=== PATIENT | female | born 1980 | race American Indian/Alaskan Native ===

== ENCOUNTER 2020-08-11 19:20 | Emergency (ER) | payer MEDICAID, OTHER ==
[2020-08-11 19:40] VITALS: BP 182/114
[2020-08-11 20:17] LABS: Basophils % (Auto) 0.7 % (0.0-1.8); Eosinophils # (Auto) 0.2 K/mm3 (0.0-0.4); Eosinophils % (Auto) 3.6 % (0.0-4.3); Hemoglobin 12.4 gm/dl (10.1-14.3); Lymphocytes # (Auto) 1.6 K/mm3 (1.2-5.4); Lymphocytes % (Auto) 24.7 % (13.4-35.0); Mean Corpuscular HGB Conc 34 % (30-34); Mean Corpuscular Volume 92 fl (79-97); Monocytes # (Auto) 0.6 K/mm3 (0.0-0.8); Monocytes % (Auto) 9.1 % (0.0-7.3); Platelet Count 298 K/mm3 (140-440); Red Blood Count 4.02 M/mm3 (3.65-5.03); Red Cell Distribution Width 14.5 % (13.2-15.2)
[2020-08-11 20:38] LABS: BUN/Creatinine Ratio 21; Blood Urea Nitrogen 21 mg/dL (7-17); Calcium 8.6 mg/dL (8.4-10.2); Hemolysis Index 12
--- NOTE | 2020-08-11 21:32 | Emergency Department Report ---
ED GI Bleed HPI - General Chief complaint: Rectal Pain Stated complaint: BACK/RT FOOT PAIN;ANAL BLEEDING Time Seen by Provider: 08/11/20 20:09 Source: patient Mode of arrival: Ambulatory Limitations: No Limitations - History of Present Illness Initial comments: 40-year-old obese -[place] female with no significant past medical history presents emerged department complaining of a 3-day history of painless rectal bleeding of unknown etiology. She reports no rectal trauma, no diarrhea, no constipation, no hematemesis no hematochezia, no fever, chills, sweats. No flank pain. States that she only notices any blood during bowel movements. She says she has no suspicion of due to her lifestyle but is sure that the bleeding is coming from the rectal area also reports having no menstrual. Radiation: none Quality: painless Improves with: none Worsens with: none Associated Symptoms: denies: epistaxis, headaches, loss of appetite, malaise, easy bruising, rash, shortness of breath, syncope, weakness - Related Data Allergies Allergy/AdvReac Type Severity Reaction Status Date / Time No Known Allergies Allergy Unverified 08/11/20 19:40 ED Review of Systems ROS: Stated complaint: BACK/RT FOOT PAIN;ANAL BLEEDING Other details as noted in HPI Comment: All other systems reviewed and negative ED Past Medical Hx - Past Medical History Previous Medical History?: Yes Hx Hypertension: Yes - Surgical History Past Surgical History?: Yes Hx Cholecystectomy: Yes Additional Surgical History: Hysterectomy - Social History Smoking Status: Current Every Day Smoker Substance Use Type: Alcohol, Marijuana ED Physical Exam - General Limitations: No Limitations General appearance: alert, in no apparent distress - Head Head exam: Present: atraumatic, normocephalic - Eye Eye exam: Present: normal appearance, PERRL, EOMI - ENT ENT exam: Present: mucous membranes moist - Neck Neck exam: Present: normal inspection - Respiratory Respiratory exam: Present: normal lung sounds bilaterally. Absent: respiratory distress - Cardiovascular Cardiovascular Exam: Present: regular rate, normal rhythm. Absent: systolic murmur, diastolic murmur, rubs, gallop - GI/Abdominal GI/Abdominal exam: Present: soft, normal bowel sounds. Absent: tenderness, guarding - Rectal Rectal exam: Present: hemorrhoids (Internal hemorrhoid was noted at 5:00.), other (Drivers' Cash Clerk was present during examination) - Extremities Exam Extremities exam: Present: normal inspection - Back Exam Back exam: Present: normal inspection - Neurological Exam Neurological exam: Present: alert, oriented X3 - Psychiatric Psychiatric exam: Present: normal affect, normal mood - Skin Skin exam: Present: warm, dry, intact, normal color. Absent: rash ED Course Vital Signs 08/11/20 19:39 Temperature 98.3 F Pulse Rate 117 H Respiratory 19 Rate Blood Pressure 182/114 O2 Sat by Pulse 99 Oximetry ED Medical Decision Making - Lab Data Result diagrams: 08/11/20 19:47 08/11/20 19:58 Lab Results 08/11/20 08/11/20 08/11/20 Range/Units 19:47 19:58 Unknown WBC 6.4 (4.5-11.0) K/mm3 RBC 4.02 (3.65-5.03) M/mm3 Hgb 12.4 (10.1-14.3) gm/dl Hct 37.0 (30.3-42.9) % MCV 92 (79-97) fl MCH 31 (28-32) pg MCHC 34 (30-34) % RDW 14.5 (13.2-15.2) % Plt Count 298 (140-440) K/mm3 Lymph % (Auto) 24.7 (13.4-35.0) % [place] % (Auto) 9.1 H (0.0-7.3) % Eos % (Auto) 3.6 (0.0-4.3) % Baso % (Auto) 0.7 (0.0-1.8) % Lymph # (Auto) 1.6 (1.2-5.4) K/mm3 [place] # (Auto) 0.6 (0.0-0.8) K/mm3 Eos # (Auto) 0.2 (0.0-0.4) K/mm3 Baso # (Auto) 0.0 (0.0-0.1) K/mm3 Seg Neutrophils % 61.9 (40.0-70.0) % Seg Neutrophils # 4.0 (1.8-7.7) K/mm3 PT 13.1 (12.2-14.9) Sec. INR 1.00 (0.87-1.13) Sodium 139 (137-145) mmol/L Potassium 3.9 (3.6-5.0) mmol/L Chloride 103.7 (98-107) mmol/L Carbon Dioxide 23 (22-30) mmol/L Anion Gap 16 mmol/L BUN 21 H (7-17) mg/dL Creatinine 1.0 (0.6-1.2) mg/dL Estimated GFR > 60 ml/min BUN/Creatinine Ratio 21 % Glucose 101 H (65-100) mg/dL Calcium 8.6 (8.4-10.2) mg/dL - Medical Decision Making This patient presents with symptoms concerning for a lower GI bleed. Differential diagnosis includes diverticulitis versus hemorrhoids. Less likely etiologies include angiodysplasia, cancer, inflammatory bowel disease. The presentation is not consistent with mesenteric ischemia or ischemic colitis, brisk of life-threatening upper GI bleed as patient has no evidence of hemorrhagic shock. Labs were evaluated to check the extent of bleeding including an H&H which was over 12. No indication for abdominal imaging at this time. And and Hemoccult was negative. Plan did labs and hemodynamic monitoring with with serial reassist assessment. No abnormal findings were discovered. Blood did noted patient has slightly elevated blood pressure which did improve at the time of discharge and she remained asymptomatic in that regard throughout her emergency room visit. Critical care attestation.: If time is entered above; I have spent that time in minutes in the direct care of this critically ill patient, excluding procedure time. ED Disposition Clinical Impression: Hemorrhoids Disposition: DC-01 TO HOME OR SELFCARE Is pt being admited?: No Does the pt Need Aspirin: No Condition: Stable Instructions: Nonsurgical Procedures for Hemorrhoids, Hemorrhoids Referrals: [facility] [Other] - 3-5 Days [facility] [Provider Group] - 3-5 Days
== END 2020-08-11 22:30 | disposition home or self-care (01) ==
LOC: ED 19:20
DX: K64.9 Unspecified hemorrhoids (principal); I10 Essential (primary) hypertension; F17.200 Nicotine dependence, unspecified, uncomplicated; Z90.49 Acquired absence of other specified parts of digestive tract; Z90.710 Acquired absence of both cervix and uterus
CPT/HCPCS: 36415; 80048; 85025; 85610; 99283

== ENCOUNTER 2020-09-19 04:54 | Inpatient (IN) | payer MEDICAID, OTHER ==
[2020-09-19] MEDS ORDERED: ASPIRIN 325 MG TAB PO ONE (05:09)
--- NOTE | 2020-09-19 05:42 | XRay Report ---
CHEST 2 VIEWS INDICATION / CLINICAL INFORMATION: SOB. COMPARISON: None available. FINDINGS: SUPPORT DEVICES: None. HEART / MEDIASTINUM: Cardiomegaly with mild increased pulmonary vascularity LUNGS / PLEURA: No significant pulmonary or pleural abnormality. No pneumothorax. ADDITIONAL FINDINGS: No significant additional findings. IMPRESSION: Cardiomegaly with mild increased pulmonary vascularity Signer Name: Darshan Johnston MD Signed: 09/19/2020 5:38 AM Workstation Name: [id number]
[2020-09-19 05:54] LABS: Basophils % (Auto) 0.9 % (0.0-1.8); Eosinophils # (Auto) 0.4 K/mm3 (0.0-0.4); Eosinophils % (Auto) 7.3 % (0.0-4.3); Hematocrit 35.4 % (30.3-42.9); Hemoglobin 11.6 gm/dl (10.1-14.3); Lymphocytes # (Auto) 1.1 K/mm3 (1.2-5.4); Mean Corpuscular HGB Conc 33 % (30-34); Mean Corpuscular Volume 92 fl (79-97); Monocytes # (Auto) 0.5 K/mm3 (0.0-0.8); Monocytes % (Auto) 8.6 % (0.0-7.3); Platelet Count 287 K/mm3 (140-440); Red Blood Count 3.86 M/mm3 (3.65-5.03); Red Cell Distribution Width 14.7 % (13.2-15.2)
[2020-09-19 06:15] LABS: Alanine Aminotransferase 30 units/L (7-56); Albumin 4.2 g/dL (3.9-5); Blood Urea Nitrogen 17 mg/dL (7-17); Calcium 9.2 mg/dL (8.4-10.2); Hemolysis Index 2
[2020-09-19 06:24] LABS: BUN/Creatinine Ratio 24
[2020-09-19] MEDS ORDERED: AZITHROMYCIN 250 MG TAB PO ONE (06:57)
[2020-09-19] MEDS ORDERED: predniSONE 20 MG TAB PO ONE (06:57)
[2020-09-19] MEDS ORDERED: IPRATROPIUM/ALBUTEROL SULFATE 3 ML AMPUL.NEB IH ONE (06:57)
--- NOTE | 2020-09-19 06:59 | Emergency Department Report ---
ED Shortness of Breath HPI - General Chief Complaint: Dyspnea/Respdistress Stated Complaint: SOB Time Seen by Provider: 09/19/20 06:49 Source: patient Mode of arrival: Ambulatory Limitations: No Limitations - History of Present Illness Initial Comments: Chief complaint: "Breathing" HPI: This is a 40-year-old female with a history of COPD, hypertension, tobacco dependence, BMI 49 who presents with shortness of breath, wheezing and productive cough for the last 2 weeks. Albuterol MDI no relief. She tried to stop smoking for a while, breathing did not improve. She denies fever, chest pain, abdominal pain, headache, body aches. She is followed at [facility]. MD Complaint: shortness of breath, cough -: Gradual, week(s) (2 weeks) Severity: moderate Consistency: constant Improves With: nothing Worsens With: nothing Known History Of: COPD Associated Symptoms: cough, sputum production - Related Data Allergies Allergy/AdvReac Type Severity Reaction Status Date / Time No Known Allergies Allergy Unverified 08/11/20 19:40 ED Review of Systems ROS: Stated complaint: SOB Other details as noted in HPI Comment: All other systems reviewed and negative Constitutional: denies: chills, fever, malaise Respiratory: cough, shortness of breath, wheezing Cardiovascular: denies: chest pain Gastrointestinal: denies: abdominal pain, nausea, vomiting ED Past Medical Hx - Past Medical History Previous Medical History?: Yes Hx Hypertension: Yes Hx COPD: Yes Additional medical history: bronchitis - Surgical History Past Surgical History?: Yes Hx Cholecystectomy: Yes Additional Surgical History: Hysterectomy - Social History Smoking Status: Current Every Day Smoker Substance Use Type: Marijuana ED Physical Exam - General Limitations: No Limitations General appearance: alert, in no apparent distress, other (No respiratory distress speaking for sentences) - Head Head exam: Present: atraumatic, normocephalic - Eye Eye exam: Present: normal appearance - ENT ENT exam: Present: mucous membranes moist - Neck Neck exam: Present: normal inspection, full ROM - Respiratory Respiratory exam: Present: respiratory distress, wheezes, prolonged expiratory. Absent: rales, rhonchi, accessory muscle use - Cardiovascular Cardiovascular Exam: Present: regular rate, normal rhythm, normal heart sounds. Absent: systolic murmur, diastolic murmur, rubs, gallop - GI/Abdominal GI/Abdominal exam: Present: soft, normal bowel sounds. Absent: distended, tenderness, guarding, rebound - Extremities Exam Extremities exam: Present: normal inspection - Back Exam Back exam: Present: normal inspection - Neurological Exam Neurological exam: Present: alert, oriented X3 - Psychiatric Psychiatric exam: Present: normal affect, normal mood - Skin Skin exam: Present: warm, dry, intact, normal color. Absent: rash ED Course Vital Signs 09/19/20 09/19/20 09/19/20 05:03 08:28 08:45 Temperature 98.5 F Pulse Rate 106 H 106 H Pulse Rate [ 106 H Bilateral] Respiratory 20 20 Rate Respiratory 18 Rate [Bilateral ] Blood Pressure 178/113 161/107 [Right] O2 Sat by Pulse 98 93 Oximetry - Reevaluation(s) Reevaluation #1: 09/19/20 09:05 Patient receiving nebulizer therapy. Frequent coughing observed Reevaluation #2: 09/19/20 10:35 Patient had only mild improvement with nebulizer therapy. She has clear breath sounds on exam. CT chest angiogram ordered ED Medical Decision Making - Lab Data Result diagrams: 09/19/20 05:27 09/19/20 05:27 - EKG Data -: EKG Interpreted by Pr EKG shows normal: sinus rhythm, axis Rate: tachycardia - EKG Data Interpretation: nonspecific ST-T wave emily 09/19/20 07:02 EKG obtained 0518 Sinus tachycardia rate 110 bpm normal axis prolonged QTC no ST elevation nonspecific T wave pattern - Radiology Data Radiology results: report reviewed Patient Name: FELIX JORDAN Gender: Female Date of : 1980 Referring Provider: TAIWO, ED Organization: [facility] Accession Number: [id number] Requested Date: September 19, 2020 05:09 Report Status: Final Requested Procedure: 1 Procedure Description: XR chest routine 2V Modality: XR Findings Reporting MD: Darshan Johnston Dictation Time: September 19, 2020 04:38 Flat Screen Worker: Not available Glass Beveller Date: CHEST 2 VIEWS INDICATION / CLINICAL INFORMATION: SOB. COMPARISON: None available. FINDINGS: SUPPORT DEVICES: None. HEART / MEDIASTINUM: Cardiomegaly with mild increased pulmonary vascularity LUNGS / PLEURA: No significant pulmonary or pleural abnormality. No pneumothorax. ADDITIONAL FINDINGS: No significant additional findings. IMPRESSION: Cardiomegaly with mild increased pulmonary vascularity Signer Name: Darshan Johnston MD Signed: 09/19/2020 4:38 AM Workstation Name: [id number] Patient Name: FELIX JORDAN Gender: Female Date of : 1980 Referring Provider: REINALDO FOREMAN Organization: [facility] Accession Number: [id number] Requested Date: September 19, 2020 10:35 Report Status: Final Requested Procedure: 1 Procedure Description: CT angio chest Modality: CT Findings Reporting MD: Noel Nguyen Dictation Time: September 19, 2020 10:28 Flat Screen Worker: Not available Glass Beveller Date: CTA CHEST WITH IV CONTRAST INDICATION: Dyspnea, chest pain obesity elevated D-dimerm 100 ml omni 350 . TECHNIQUE: Axial CT images were obtained through the chest after injection of 100 mL IV contrast. 3 plane MIP reconstructions were produced. All CT scans at this location are performed using CT dose reduction for ALARA by means of automated exposure control. COMPARISON: None available. FINDINGS: PULMONARY ARTERIES: No pulmonary emboli. AORTA AND ARTERIES: No acute abnormality. MEDIASTINUM: No mass, lymphadenopathy or other significant abnormality. The h eart is normal in size without a pericardial effusion. The trachea and main bronchi are patent and normal in caliber. LUNGS: Diffuse interstitial prominence with bibasilar airspace patchy consolidation with small bilateral pleural effusions. ADDITIONAL FINDINGS: None. UPPER ABDOMEN: No acute findings. BONES: No significant osseous abnormality. IMPRESSION: 1. No CT evidence for pulmonary embolism. 2. Mild interstitial edema with small bilateral pleural effusions. Signer Name: Noel Nguyen MD Signed: 09/19/2020 10:28 AM Workstation Name: [id number] - Medical Decision Making Acute respiratory failure hypoxia: After treatment in the emergency department oxygen saturation 91% on room air. After exertion oxygen saturation 83%. CT angiogram revealed bilateral fluffy opacities. Due to productive cough concern for infectious atypical organism such as COVID-19 pneumonia. Differential diagnosis includes heart failure. Patient admitted to the hospital service in fair condition requiring oxygen supplementation Critical care attestation.: If time is entered above; I have spent that time in minutes in the direct care of this critically ill patient, excluding procedure time. ED Disposition Clinical Impression: Acute respiratory failure with hypoxia, Suspected COVID-19 virus infection, Acute heart failure Disposition: DC09 OP ADMIT IP TO THIS HOSP Is pt being admited?: Yes Does the pt Need Aspirin: No Condition: Stable
--- NOTE | 2020-09-19 11:32 | Cat Scan Report ---
CTA CHEST WITH IV CONTRAST INDICATION: Dyspnea, chest pain obesity elevated D-dimerm 100 ml omni 350 . TECHNIQUE: Axial CT images were obtained through the chest after injection of 100 mL IV contrast. 3 plane MIP re constructions were produced. All CT scans at this location are performed using CT dose reduction for ALARA by means of automated exposure control. COMPARISON: None available. FINDINGS: PULMONARY ARTERIES: No pulmonary emboli. AORTA AND ARTERIES: No acute abnormality. MEDIASTINUM: No mass, lymphadenopathy or other significant abnormality. The heart is normal in size w ithout a pericardial effusion. The trachea and main bronchi are patent and normal in caliber. LUNGS: Diffuse interstitial prominence with bibasilar airspace patchy consolidation with small bilate ral pleural effusions. ADDITIONAL FINDINGS: None. UPPER ABDOMEN: No acute findings. BONES: No significant osseous abnormality. IMPRESSION: 1. No CT evidence for pulmonary embolism. 2. Mild interstitial edema with small bilateral pleural effusions. Signer Name: Noel Nguyen MD Signed: 09/19/2020 11:28 AM Workstation Name: [id number]
[2020-09-19] MEDS ORDERED: cefTRIAXone/NS 1 GM/50 ML 1 GM/50 ML BAG IV ONE (11:59)
--- NOTE | 2020-09-19 12:09 | History and Physical Report ---
History of Present Illness Chief complaint: I am short of breath History of present illness: 40 YO Female with Obesity Hypoventilation Syndrome, COPD, HTN, KELLEE concompliant with CPAP, Nicotine Dependence, ETOH Dependence presents to ED for evaluation. Pt reports" I am short of breath". Patient states that she has experienced shortness of breath over the past 1 year with worsening symptoms over the past 1 week. Patient knowledges decreased exercise tolerance, dyspnea on exertion, dyspnea at rest, as well as orthopnea, and paroxysmal nocturnal dyspnea. Patient transported to [facility] via private vehicle for further care and evaluation of the aforementioned symptoms. The patient was seen and evaluated in the emerg ency department. All lab and imaging studies reviewed. Patient underwent chest x-ray and found to have bilateral pleural effusion, as well as clinical symptoms consistent with new onset diastolic CHF decompensation. Patient initiated on CHF protocol and admitted to telemetry. Cardiology team consulted in ED. Patient denies fever, chills, chest pain, palpitation, productive cough, skin rash, recent ill contact, or known exposure to COVID-19. No prior admission for review. All medication listed at time of admission has been reconciled. Past History Past Medical History: COPD, hypertension, other (See HPI) Past Surgical History: cholecystectomy, hysterectomy Social history: , smoking, alcohol abuse Family history: diabetes, hypertension Medications and Allergies Allergies Allergy/AdvReac Type Severity Reaction Status Date / Time No Known Allergies Allergy Unverified 08/11/20 19:40 Active Meds: Active Medications Ceftriaxone Sodium (Rocephin/Ns 1 Gm/50 Ml) 1 gm in 50 mls @ 100 mls/hr IV ONCE ONE; Protocol Stop: 09/19/20 12:28 Review of Systems Constitutional: no weight loss, no weight gain, no fever, no chills Ears, nose, mouth and throat: no ear pain, no ear discharge, no tinnitis, no nose pain, no nasal congestion Breasts: no change in shape, no swelling, no mass Cardiovascular: orthopnea, shortness of breath, dyspnea on exertion, paroxysmal nocturnal dyspnea, decreased exercise tolerance, no chest pain, no rapid/irregular heart beat, no syncope Respiratory: no cough, no cough with sputum, no excessive sputum Gastrointestinal: no abdominal pain, no nausea, no vomiting, no constipation Genitourinary Female: no pelvic pain, no flank pain, no dysuria, no urinary frequency, no urgency Rectal: no pain, no incontinence, no bleeding Musculoskeletal: no neck stiffness, no neck pain, no shooting arm pain, no arm numbness/tingling Integumentary: no rash, no pruritis, no redness, no sores, no wounds Neurological: no head injury, no transient paralysis, no parathesias, no tingli ng, no seizures Psychiatric: no anxiety, no memory loss, no sleep disturbances, no change in appetite Endocrine: no cold intolerance, no polyphagia, no excessive thirst, no polyuria, no nocturia Hematologic/Lymphatic: no easy bruising, no easy bleeding, no lymphadenopathy Allergic/Immunologic: no urticaria, no allergic rhinitis, no persistent infections, no anaphylaxis Exam - Constitutional Vitals: Temp Pulse Resp BP Pulse Ox 98.5 F 106 H 18 161/107 93 09/19/20 05:03 09/19/20 08:45 09/19/20 08:45 09/19/20 08:28 09/19/20 08:28 General appearance: Present: mild distress, obese - EENT Eyes: Present: PERRL ENT: hearing intact, clear oral mucosa - Neck Neck: Present: supple, normal ROM - Respiratory Respiratory effort: normal Respiratory: bilateral: rales - Cardiovascular Heart Sounds: Present: S1 & S2. Absent: rub, click - Extremities Extremities: pulses symmetrical, No edema Peripheral Pulses: within normal limits - Abdominal General gastrointestinal: Present: soft, non-tender, non-distended, normal bowel sounds Female genitourinary: Present: normal - Integumentary Integumentary: Present: clear, warm, dry - Musculoskeletal Musculoskeletal: gait normal, strength equal bilaterally - Psychiatric Psychiatric: appropriate mood/affect, intact judgment & insight - Neurologic Neurologic: CNII-XII intact, moves all extremities HEART Score - HEART Score Troponin: Troponin T < 0.010 ng/mL (0.00-0.029) 09/19/20 05:27 Results - Labs CBC & Chem 7: 09/19/20 05:27 09/19/20 05:27 Labs: Abnormal lab results 09/19/20 09/19/20 09/19/20 Range/Units 05:27 05:27 07:40 [place] % (Auto) 8.6 H (0.0-7.3) % Eos % (Auto) 7.3 H (0.0-4.3) % Lymph # (Auto) 1.1 L (1.2-5.4) K/mm3 D-Dimer 323.16 H (0-234) ng/mlDDU Glucose 118 H (65-100) mg/dL Assessment and Plan - Patient Problems (1) Diastolic CHF Current Visit: Yes Status: Acute Qualifiers: Heart failure chronicity: acute Qualified Code(s): I50.31 - Acute diastolic (congestive) heart failure Plan to address problem: CHF protocol: Strict I's/O, monitor urine output every shift, daily weight, afterload reduction, blood pressure control, BNP, cardiology team consulted, echocardiogram ordered and is pending at time of admission. (2) Obesity hypoventilation syndrome Current Visit: Yes Status: Acute Plan to address problem: Balanced diet, increase physical activity discharge, outpatient pulmonary follow-up for sleep study. (3) Nicotine dependence Current Visit: Yes Status: Acute Qualifiers: Nicotine product type: cigarettes Substance use status: in withdrawal Qualified Code(s): F17.213 - Nicotine dependence, cigarettes, with withdrawal Plan to address problem: Smoking cessation counseling, supportive care, behavior change counseling, +15 minutes. (4) EtOH dependence Current Visit: Yes Status: Acute Plan to address problem: Thiamine, folic acid, multivitamin, CIWA protocol (5) DVT prophylaxis Current Visit: Yes Status: Acute Plan to address problem: SCDs bilateral lower extremities while in bed, patient is ambulatory
[2020-09-19] MEDS ORDERED: FUROSEMIDE 40 MG/4 ML INJ IV ONE (12:12)
[2020-09-19] MEDS ORDERED: ACETAMINOPHEN 325 MG TAB PO PRN (13:07)
[2020-09-19] MEDS ORDERED: ALBUTEROL 2.5 MG/3 ML NEBU IH PRN (13:07)
[2020-09-19] MEDS ORDERED: ONDANSETRON 4 MG/2 ML INJ IV PRN (13:07)
--- NOTE | 2020-09-19 15:57 | Consultation ---
History of Present Illness Consult date: 09/19/20 Requesting physician: OBDULIO JARQUIN Consult reason: congestive heart failure History of present illness: This patient is a 40-year-old female with a significant history of COPD, hypertension, obstructive sleep apnea noncompliant with CPAP, tobacco use, EtOH abuse, BMI 49. She is previously unknown to our practice and is not followed by cardiology. Patient presents to [facility] ER complaining of shortness of breath and productive cough with wheeze acutely worse x1 week, with progressive decrease in ADLs and shortness of breath over the last year. Patient has been told she has heart failure in the past which was reportedly evaluated through [facility] but is not currently seen by their practice. She has just been established with [facility] and is not currently on any home medications. Cardiology is consulted for congestive heart failure. BNP is noted to be elevated on admission. At time of interview, patient denies any weakness, dizziness, syncope, chest pain, abdominal pain, N/V/D, recent illness or known exposures. Her shortness of breath is greatly improved with supplemental oxygen by nasal cannula. Patient admits tobacco use half pack per day x20 years. Significant history of EtOH use 750 mL bottle every other night per patient. Patient is admitted is a Covid PUI, she has not received Covid vaccination and has not previously been diagnosed with episode of Covid. She tested negative for COVID-19 in June. Patient had sleep study 8 years ago and was diagnosed with obstructive sleep apnea recommended to be on CPAP therapy for which she has been noncompliant and has not followed up with pulmonology. D-dimer is noted to be elevated on admission. CTA chest is negative for pulmonary embolism. BLE duplex ultrasound is pending. Past History Past Medical History: other (See HPI) Medications and Allergies Allergies Allergy/AdvReac Type Severity Reaction Status Date / Time No Known Allergies Allergy Unverified 08/11/20 19:40 Active Meds: Active Medications Acetaminophen (Acetaminophen 325 Mg Tab) 650 mg PO Q4H PRN PRN Reason: Pain MILD(1-3)/Fever >100.5/MCLAUGHLIN Albuterol (Albuterol 2.5 Mg/3 Ml Nebu) 2.5 mg IH Q4HRT PRN PRN Reason: Shortness Of Breath Famotidine (Famotidine 10 Mg Tab) 10 mg PO BID YNES Furosemide (Furosemide 20 Mg/2 Ml Inj) 20 mg IV BID@0600,1800 [facility] Ondansetron HCl (Ondansetron 4 Mg/2 Ml Inj) 4 mg IV Q8H PRN PRN Reason: Nausea And Vomiting Sodium Chloride (Sodium Chloride 0.9% 10 Ml Flush Syringe) 10 ml IV BID [facility] Sodium Chloride (Sodium Chloride 0.9% 10 Ml Flush Syringe) 10 ml IV PRN PRN PRN Reason: LINE FLUSH Review of Systems Constitutional: no weight loss, no weight gain, no fever, no chills, no sweats, no night sweats Ears, nose, mouth and throat: no ear pain, no ear discharge, no nose pain, no nasal congestion, no nasal discharge Cardiovascular: orthopnea, edema, shortness of breath, dyspnea on exertion, leg edema, decreased exercise tolerance, no chest pain, no palpitations, no rapid/irregular heart beat, no syncope, no lightheadedness, no paroxysmal nocturnal dyspnea, no claudication, no phlebitis, no high blood pressure Respiratory: cough, shortness of breath, dyspnea on exertion, no hemoptysis Gastrointestinal: no abdominal pain, no nausea, no vomiting, no diarrhea Genitourinary Female: no flank pain Menstruation: post hysterectomy Musculoskeletal: no neck stiffness, no neck pain, no shooting arm pain, no arm numbness/tingling, no low back pain, no shooting leg pain Integumentary: no rash, no pruritis, no redness, no sores, no wounds Neurological: no head injury, no paralysis, no weakness, no parathesias, no numbness, no tingling, no seizures, no syncope Psychiatric: no anxiety Endocrine: no cold intolerance, no heat intolerance Hematologic/Lymphatic: no easy bruising, no easy bleeding Allergic/Immunologic: no urticaria Physical Examination Last Vital Signs Temp 98.5 F 09/19/20 05:03 Pulse 106 H 09/19/20 08:45 Resp 18 09/19/20 08:45 BP 161/107 09/19/20 08:28 Pulse Ox 93 09/19/20 08:28 General appearance: no acute distress HEENT: Positive: PERRL, Normocephaly, Mucus Membranes Moist Neck: Positive: neck supple, trachea midline Cardiac: Positive: Reg Rate and Rhythm, S1/S2 Lungs: Positive: Decreased Breath Sounds Neuro: Positive: Grossly Intact Abdomen: Positive: Unremarkable, Soft Skin: Negative: Rash, Wound Musculoskeletal: No Pain Extremities: Present: upper extr. pulses, lower extr. pulses, +2 Edema Results 09/19/20 05:27 09/19/20 05:27 Cardiac Enzymes 09/19/20 Range/Units 05:27 AST 26 (5-40) units/L CBC 09/19/20 Range/Units 05:27 WBC 5.6 (4.5-11.0) K/mm3 RBC 3.86 (3.65-5.03) M/mm3 Hgb 11.6 (10.1-14.3) gm/dl Hct 35.4 (30.3-42.9) % Plt Count 287 (140-440) K/mm3 Lymph # (Auto) 1.1 L (1.2-5.4) K/mm3 [place] # (Auto) 0.5 (0.0-0.8) K/mm3 Eos # (Auto) 0.4 (0.0-0.4) K/mm3 Baso # (Auto) 0.0 (0.0-0.1) K/mm3 Comprehensive Metabolic Panel 09/19/20 Range/Units 05:27 Sodium 140 (137-145) mmol/L Potassium 4.2 (3.6-5.0) mmol/L Chloride 105.4 (98-107) mmol/L Carbon Dioxide 25 (22-30) mmol/L BUN 17 (7-17) mg/dL Creatinine 0.7 (0.6-1.2) mg/dL Glucose 118 H (65-100) mg/dL Calcium 9.2 (8.4-10.2) mg/dL AST 26 (5-40) units/L ALT 30 (7-56) units/L Alkaline Phosphatase 105 (35-129) units/L Total Protein 6.6 (6.3-8.2) g/dL Albumin 4.2 (3.9-5) g/dL - Imaging and Cardiology Echo: pending EKG: report reviewed, image reviewed EKG interpretations - Telemetry EKG Rhythm: Sinus Tachycardia - EKG Sinus rhythms and dysrhythmias: sinus tachycardia Assessment and Plan Acute on chronic congestive heart failure * Currently chest pain-free. Twelve-lead reviewed shows sinus tach with no acut e ischemic changes. Troponin is negative x1. Will continue to trend CE's. * Echocardiogram is pending * Optimize volume control: Lasix 40 mg IV twice daily. BMP, mag in a.m. Strict I/O's. * Optimize antihypertensive regimen: Initiate Coreg 12.5 twice daily, lisinopril 5 mg daily. Elevated D-dimer * CTA chest is negative for PTE. BLE ultrasound pending Covid PUI * PCR results are pending EtOH dependence * Management per primary team Tobacco use * Cessation encouraged DVT prophylaxis * Heparin SQ Patient is currently stable cardiac status. Echo pending. Will follow This patient was seen in conjunction with Dr Valentina Callaway who agrees with this assessment plan of care - Patient Problems (1) Acute on chronic heart failure Current Visit: Yes Status: Acute (2) Cardiomyopathy Current Visit: Yes Status: Chronic (3) ETOH abuse Current Visit: Yes Status: Chronic (4) Elevated d-dimer Current Visit: Yes Status: Acute (5) Tobacco use Current Visit: Yes Status: Chronic (6) DVT prophylaxis Current Visit: Yes Status: Acute (7) Person under investigation for COVID-19 Current Visit: Yes Status: Acute (8) Obstructive sleep apnea Current Visit: Yes Status: Chronic (9) Hypertension Current Visit: Yes Status: Chronic
--- NOTE | 2020-09-19 17:26 | Vascular Lab Report ---
DUPLEX DOPPLER LOWER EXTREMITY VEINS, BILATERAL INDICATION / CLINICAL INFORMATION: elevated d-dimer. TECHNIQUE: Duplex doppler imaging was performed through the veins of both lower extremities using venous jourdan aris and other maneuvers. COMPARISON: None available. FINDINGS: RIGHT COMMON FEMORAL VEIN: Negative. RIGHT FEMORAL VEIN: Negative. RIGHT POPLITEAL VEIN: Negative. RIGHT CALF VEINS: Negative. LEFT COMMON FEMORAL VEIN: Negative. LEFT FEMORAL VEIN: Negative. LEFT POPLITEAL VEIN: Negative. LEFT CALF VEINS: Negative. ADDITIONAL FINDINGS: None. IMPRESSION: 1. No sonographic evidence for DVT in either lower extremity. Signer Name: Josh Glaser MD Signed: 09/19/2020 5:22 PM Workstation Name: [id number]
[2020-09-19] MEDS ORDERED: FUROSEMIDE 20 MG/2 ML INJ IV SCH (18:00)
[2020-09-19] MEDS: LISINOPRIL 5 MG TAB PO SCH (18:51)
[2020-09-19] MEDS ORDERED: hydrALAZINE 20 MG/1 ML INJ IV PRN (19:27)
[2020-09-19] MEDS ORDERED: HYDROmorphone 1 MG/1 ML INJ IV PRN (19:27)
[2020-09-19] MEDS: FUROSEMIDE 20 MG/2 ML INJ IV SCH (19:58)
--- NOTE | 2020-09-19 23:08 | Cat Scan Report ---
CT ABDOMEN AND PELVIS WITHOUT CONTRAST HISTORY: Syncope pallor. COMPARISON: None. TECHNIQUE: CT images of the abdomen and pelvis were obtained without administration of intravenous co ntrast. All CT scans at this location are performed using CT dose reduction for ALARA by means of au tomated exposure control. FINDINGS: Lungs/bones: Groundglass opacity/edema and bilateral lower lungs. Mild atelectasis in the right lowe r lung Abdomen/pelvis: Within limits of a noncontrast examination the liver, spleen, adrenal glands and dickey creas appear normal. Prior cholecystectomy. Hypodensities in bilateral kidneys suggest residual contr ast from prior CT angiogram. No hydronephrosis is seen. No bowel obstruction is identified. No free f luid in the abdomen or pelvis. No focal inflammatory change. Small amount of gas is seen in left bili ye system and the liver liver is enlarged. No acute bone findings are seen. Small amount of free flu id in the pelvis. IMPRESSION: 1. Hepatomegaly. Postoperative change with gas in the left biliary system and post cholecystomy hannah e. 2. No bowel obstruction is seen. 3. Free fluid in the pelvis 4. Small effusions Signer Name: Darshan Johsnton MD Signed: 09/19/2020 11:03 PM Workstation Name: [id number]
[2020-09-19] MEDS: carvediloL 12.5 MG TAB PO SCH (23:49)
[2020-09-19] MEDS: FAMOTIDINE 10 MG TAB PO SCH (23:49)
[2020-09-20] MEDS: FUROSEMIDE 20 MG/2 ML INJ IV SCH ×2 (05:43→17:46)
[2020-09-20 08:11] LABS: Hematocrit 37.9 % (30.3-42.9); Hemoglobin 12.5 gm/dl (10.1-14.3); Mean Corpuscular HGB Conc 33 % (30-34); Mean Corpuscular Volume 91 fl (79-97); Platelet Count 317 K/mm3 (140-440); Red Blood Count 4.18 M/mm3 (3.65-5.03); Red Cell Distribution Width 14.5 % (13.2-15.2)
[2020-09-20 08:30] LABS: Blood Urea Nitrogen 15 mg/dL (7-17); Calcium 9.2 mg/dL (8.4-10.2); Hemolysis Index 19
[2020-09-20 08:37] LABS: BUN/Creatinine Ratio 21
[2020-09-20] MEDS ORDERED: LISINOPRIL 5 MG TAB PO SCH (12:08)
[2020-09-20] MEDS ORDERED: carvediloL 12.5 MG TAB PO SCH (12:08)
--- NOTE | 2020-09-20 12:27 | Progress Note ---
Assessment and Plan Assessment and plan: 40 YO Female with Obesity Hypoventilation Syndrome, COPD, HTN, KELLEE concompliant with CPAP, Nicotine Dependence, ETOH Dependence presents to ED for evaluation. Pt reports" I am short of breath". Patient states that she has experienced shortness of breath over the past 1 year with worsening symptoms over the past 1 week. Patient knowledges decreased exercise tolerance, dyspnea on exertion, dyspnea at rest, as well as orthopnea, and paroxysmal nocturnal dyspnea. Patient transported to [facility] via private vehicle for further care and evaluation of the aforementioned symptoms. The patient was seen and evaluated in the emergency department. All lab and imaging studies reviewed. Patient underwent chest x-ray and found to have bilateral pleural effusion, as well as clinical symptoms consistent with new onset diastolic CHF decompensation. Patient initiated on CHF protocol and admitted to telemetry. Cardiology team consulted in ED. Patient denies fever, chills, chest pain, palpitation, productive cough, skin rash, recent ill contact, or known exposure to COVID-19. No prior admission for review. All medication listed at time of admission has been reconciled. CT chest: mild interstitial edema 09/20: Restart CPAP, counselling about tobacco use disorder 15 mins counselling, Continue current management, Pulmonary eval. Also discussed compliance and weight loss. She verbalized understanding. Anticipate discharge in 24-48 hrs. Gurpreet Carreon (1) Diastolic CHF Current Visit: Yes Status: Acute Qualifiers: Heart failure chronicity: acute Qualified Code(s): I50.31 - Acute diastolic (congestive) heart failure Plan to address problem: CHF protocol: Strict I's/O, monitor urine output every shift, daily weight, afterload reduction, blood pressure control, BNP, cardiology team consulted, echocardiogram ordered and is pending at time of admission. (2) Obesity hypoventilation syndrome Current Visit: Yes Status: Acute Plan to address problem: Balanced diet, increase physical activity discharge, outpatient pulmonary follow-up for sleep study. (3) Nicotine dependence Current Visit: Yes Status: Acute Qualifiers: Nicotine product type: cigarettes Substance use status: in withdrawal Qualified Code(s): F17.213 - Nicotine dependence, cigarettes, with withdrawal Plan to address problem: Smoking cessation counseling, supportive care, behavior change counseling, +15 minutes. (4) EtOH dependence Current Visit: Yes Status: Acute Plan to address problem: Thiamine, folic acid, multivitamin, CIWA protocol (5) Hypokalemia (6) DVT prophylaxis Current Visit: Yes Status: Acute Plan to address problem: SCDs bilateral lower extremities while in bed, patient is ambulatory History Interval history: Patient seen and examined, reports some improvement. Patient reports that she was smoking a week ago when she began having cough. She reports some improvement in the cough, but still with shortness of breath, she uses CPAP at home. Hospitalist Physical - Constitutional Vitals: Temp Pulse Resp BP Pulse Ox 98.6 F 97 H 20 158/96 93 09/20/20 05:03 09/20/20 05:03 09/20/20 05:03 09/20/20 05:03 09/20/20 08:15 General appearance: Present: mild distress, obese HEART Score - HEART Score Troponin: Troponin T < 0.010 ng/mL (0.00-0.029) 09/20/20 06:55 Results - Labs CBC & Chem 7: 09/20/20 06:55 09/20/20 06:55 Labs: Laboratory Last Values WBC 6.7 K/mm3 (4.5-11.0) 09/20/20 06:55 RBC 4.18 M/mm3 (3.65-5.03) 09/20/20 06:55 Hgb 12.5 gm/dl (10.1-14.3) 09/20/20 06:55 Hct 37.9 % (30.3-42.9) 09/20/20 06:55 MCV 91 fl (79-97) 09/20/20 06:55 MCH 30 pg (28-32) 09/20/20 06:55 MCHC 33 % (30-34) 09/20/20 06:55 RDW 14.5 % (13.2-15.2) 09/20/20 06:55 Plt Count 317 K/mm3 (140-440) 09/20/20 06:55 Lymph % (Auto) 20.0 % (13.4-35.0) 09/19/20 05:27 [place] % (Auto) 8.6 % (0.0-7.3) H 09/19/20 05:27 Eos % (Auto) 7.3 % (0.0-4.3) H 09/19/20 05:27 Baso % (Auto) 0.9 % (0.0-1.8) 09/19/20 05:27 Lymph # (Auto) 1.1 K/mm3 (1.2-5.4) L 09/19/20 05:27 [place] # (Auto) 0.5 K/mm3 (0.0-0.8) 09/19/20 05:27 Eos # (Auto) 0.4 K/mm3 (0.0-0.4) 09/19/20 05:27 Baso # (Auto) 0.0 K/mm3 (0.0-0.1) 09/19/20 05:27 Seg Neutrophils % 63.2 % (40.0-70.0) 09/19/20 05:27 Seg Neutrophils # 3.5 K/mm3 (1.8-7.7) 09/19/20 05:27 D-Dimer 323.16 ng/mlDDU (0-234) H 09/19/20 07:40 Sodium 139 mmol/L (137-145) 09/20/20 06:55 Potassium 3.5 mmol/L (3.6-5.0) L 09/20/20 06:55 Chloride 100.0 mmol/L (98-107) 09/20/20 06:55 Carbon Dioxide 27 mmol/L (22-30) 09/20/20 06:55 Anion Gap 16 mmol/L 09/20/20 06:55 BUN 15 mg/dL (7-17) 09/20/20 06:55 Creatinine 0.7 mg/dL (0.6-1.2) 09/20/20 06:55 Estimated GFR > 60 ml/min 09/20/20 06:55 BUN/Creatinine Ratio 21 % 09/20/20 06:55 Glucose 100 mg/dL (65-100) 09/20/20 06:55 Calcium 9.2 mg/dL (8.4-10.2) 09/20/20 06:55 Magnesium 1.90 mg/dL (1.7-2.3) 09/20/20 06:55 Total Bilirubin 0.30 mg/dL (0.1-1.2) 09/19/20 05:27 AST 26 units/L (5-40) 09/19/20 05:27 ALT 30 units/L (7-56) 09/19/20 05:27 Alkaline Phosphatase 105 units/L (35-129) 09/19/20 05:27 Troponin T < 0.010 ng/mL (0.00-0.029) 09/20/20 06:55 NT-Pro-B Natriuret Pep 4949 pg/mL (0-450) H 09/19/20 05:27 Total Protein 6.6 g/dL (6.3-8.2) 09/19/20 05:27 Albumin 4.2 g/dL (3.9-5) 09/19/20 05:27 Albumin/Globulin Ratio 1.8 % 09/19/20 05:27 Mera/IV: Voiding Method Toilet Active Medications - Current Medications Current Medications: Generic Name Dose Route Start Last Admin Trade Name Freq PRN Reason Stop Dose Admin Acetaminophen 650 mg 09/19/20 13:07 Acetaminophen 325 Mg Tab PO Q4H PRN Pain MILD(1-3)/Fever >100.5/MCLAUGHLIN Albuterol 2.5 mg 09/19/20 13:07 Albuterol 2.5 Mg/3 Ml Nebu IH Q4HRT PRN Shortness Of Breath Aspirin 81 mg 09/20/20 13:00 Aspirin 81 Mg Tab Chew PO QDAY YNES Atorvastatin Calcium 40 mg 09/20/20 22:00 Atorvastatin 40 Mg Tab PO QHS YNES Carvedilol 25 mg 09/20/20 12:08 Carvedilol 12.5 Mg Tab PO BID YNES Carvedilol 25 mg 09/20/20 12:30 Carvedilol 25 Mg Tab PO Q12HR YNES Famotidine 10 mg 09/19/20 22:00 09/19/20 23:49 Famotidine 10 Mg Tab PO 10 mg BID YNES Administration Furosemide 40 mg 09/19/20 18:00 09/20/20 05:43 Furosemide 20 Mg/2 Ml Inj IV 40 mg BID@0600,1800 YNES Administration Heparin Sodium (Porcine) 5,000 unit 09/20/20 12:15 Heparin 5,000 Unit/1 Ml Vial SUB-Q Q12HR YNES Hydralazine HCl 10 mg 09/19/20 19:27 09/19/20 19:59 Hydralazine 20 Mg/1 Ml Inj IV 10 mg Q4HR PRN Administration Hypertension Hydromorphone HCl 0.5 mg 09/19/20 19:27 09/19/20 19:59 Hydromorphone 1 Mg/1 Ml Inj IV 0.5 mg Q4H PRN Administration Pain , Severe (7-10) Lisinopril 10 mg 09/20/20 12:08 Lisinopril 5 Mg Tab PO QDAY [facility] Lisinopril 10 mg 09/20/20 12:30 Lisinopril 10 Mg Tab PO QDAY [facility] Ondansetron HCl 4 mg 09/19/20 13:07 Ondansetron 4 Mg/2 Ml Inj IV Q8H PRN Nausea And Vomiting Potassium Chloride 20 meq 09/20/20 13:00 Potassium Chloride Er 20 Meq Tab PO QDAY YNES Sodium Chloride 10 ml 09/19/20 22:00 09/19/20 23:49 Sodium Chloride 0.9% 10 Ml Flush Syringe IV 10 ml BID YNES Administration Sodium Chloride 10 ml 09/19/20 13:07 Sodium Chloride 0.9% 10 Ml Flush Syringe IV PRN PRN LINE FLUSH
[2020-09-20] MEDS: HEPARIN 5,000 UNIT/1 ML VIAL SUB-Q SCH ×2 (13:14→23:39)
[2020-09-20] MEDS: carvediloL 25 MG TAB PO SCH ×2 (13:14→23:38)
[2020-09-20] MEDS: FAMOTIDINE 10 MG TAB PO SCH ×2 (13:14→23:38)
[2020-09-20] MEDS: POTASSIUM CHLORIDE ER 20 MEQ TAB PO SCH (13:16)
[2020-09-20] MEDS: LISINOPRIL 10 MG TAB PO SCH (13:33)
[2020-09-20] MEDS: ASPIRIN 81 MG TAB CHEW PO SCH (13:33)
[2020-09-20] MEDS: predniSONE 20 MG TAB PO SCH (13:33)
--- NOTE | 2020-09-20 15:11 | Progress Note ---
Assessment and Plan Acute on chronic congestive heart failure * Currently chest pain-free. Twelve-lead reviewed shows sinus tach with no acute ischemic changes. Troponin is negative x2. AMI is ruled out. * Echocardiogram reviewed (09/19/2020): LVEF is 20 to 25%. Left ventricle is moderately dilated. LV SF is severely decreased. Severe global hypokinesis of the left ventricle. No LV thrombus noted on the study. Right ventricle is mild to moderately dilated. No evidence for ASD. Mild MR. Mild TR. RVSP is 47 mmHg. Mild pulmonary hypertension. * Optimize volume control: Lasix 40 mg IV twice daily. BMP, mag in a.m. Strict I/O's. * Optimize antihypertensive regimen: Increase Coreg to 25 mg twice daily, increase lisinopril to 10 mg daily. Elevated D-dimer * CTA chest is negative for PTE. BLE ultrasound is negative for DVT Hypokalemia * Initiate K. Dur 20 M EQ daily. Repeat BMP in a.m. Covid PUI * PCR results are pending EtOH dependence * Management per primary team Tobacco use * Cessation encouraged DVT prophylaxis * Heparin SQ Continue diuresis. Anticipate stress test on Friday. Will follow This patient was seen in conjunction with Dr Valentina Callaway who agrees with this assessment plan of care - Patient Problems (1) Acute on chronic heart failure Current Visit: Yes Status: Acute (2) Cardiomyopathy Current Visit: Yes Status: Chronic (3) ETOH abuse Current Visit: Yes Status: Chronic (4) Elevated d-dimer Current Visit: Yes Status: Acute (5) Tobacco use Current Visit: Yes Status: Chronic (6) DVT prophylaxis Current Visit: Yes Status: Acute (7) Person under investigation for COVID-19 Current Visit: Yes Status: Acute (8) Obstructive sleep apnea Current Visit: Yes Status: Chronic (9) Hypertension Current Visit: Yes Status: Chronic Subjective Date of service: 09/20/20 Principal diagnosis: HFrEF Interval history: Patient resting comfortably in bed. No chest pain or shortness of breath overnight. Telemetry reviewed sinus tach [address] 130s. No events Objective Last Vital Signs Temp 98.1 F 09/20/20 10:52 Pulse 104 H 09/20/20 10:52 Resp 24 09/20/20 10:52 BP 129/91 09/20/20 10:52 Pulse Ox 95 09/20/20 10:52 - Physical Examination HEENT: Positive: PERRL, Normocephaly, Mucus Membranes Moist Neck: Positive: neck supple, trachea midline Cardiac: Positive: Reg Rate and Rhythm, S1/S2 Lungs: Positive: Normal Exam, Normal Breath Sounds Neuro: Positive: Grossly Intact Abdomen: Positive: Unremarkable, Soft Skin: Negative: Rash, Wound Musculoskeletal: No Pain Extremities: Present: upper extr. pulses, lower extr. pulses, +2 Edema - Labs and Meds CBC 09/20/20 Range/Units 06:55 WBC 6.7 (4.5-11.0) K/mm3 RBC 4.18 (3.65-5.03) M/mm3 Hgb 12.5 (10.1-14.3) gm/dl Hct 37.9 (30.3-42.9) % Plt Count 317 (140-440) K/mm3 Comprehensive Metabolic Panel 09/20/20 Range/Units 06:55 Sodium 139 (137-145) mmol/L Potassium 3.5 L (3.6-5.0) mmol/L Chloride 100.0 (98-107) mmol/L Carbon Dioxide 27 (22-30) mmol/L BUN 15 (7-17) mg/dL Creatinine 0.7 (0.6-1.2) mg/dL Glucose 100 (65-100) mg/dL Calcium 9.2 (8.4-10.2) mg/dL - Imaging and Cardiology EKG: report reviewed, image reviewed Echo: report reviewed (Echocardiogram reviewed (09/19/2020): LVEF is 20 to 25%. Left ventricle is moderately dilated. LV SF is severely decreased. Severe global hypokinesis of the left ventricle. No LV thrombus noted on the study. Right ventricle is mild to moderately dilated. No evidence for ASD. Mild MR. Mild TR.) - EKG Sinus rhythms and dysrhythmias: sinus tachycardia
--- NOTE | 2020-09-20 19:20 | Electrocardiograph Report ---
[facility] Test Date: 2020-09-19 Test Time: 05:18:35 Pat Name: FELIX JORDAN Department: Room: A367 Gender: F Facetor: DENA : 1980 Requested By: ED DOC Order Number: [id number] Reading MD: Braeden Tim Measurements Intervals [place] Rate: 111 P: 69 ID: [id number] QRS: 22 QRSD: 83 T: 43 QT: 362 QTc: 491 Interpretive Statements Sinus tachycardia Probable left atrial enlargement Nonspecific T wave abnormality No previous ECG available for comparison Electronically Signed On 09-20-2020 19:20:24 EDT by Braeden Tim
[2020-09-21] MEDS: FUROSEMIDE 20 MG/2 ML INJ IV SCH ×2 (07:35→17:53)
[2020-09-21 08:29] LABS: Hemoglobin 12.6 gm/dl (10.1-14.3); Mean Corpuscular HGB Conc 33 % (30-34); Mean Corpuscular Volume 91 fl (79-97); Platelet Count 315 K/mm3 (140-440); Red Blood Count 4.19 M/mm3 (3.65-5.03); Red Cell Distribution Width 14.5 % (13.2-15.2)
[2020-09-21 08:54] LABS: Alanine Aminotransferase 20 units/L (7-56); Albumin 3.5 g/dL (3.9-5); BUN/Creatinine Ratio 24; Blood Urea Nitrogen 19 mg/dL (7-17); Calcium 8.8 mg/dL (8.4-10.2); Chol/HDL Ratio 2.54 %; HDL Cholesterol 55 mg/dL (40-59); Hemolysis Index 4; LDL Cholesterol,Direct 81 mg/dL (50-130)
--- NOTE | 2020-09-21 09:35 | Consultation ---
History of Present Illness Consult date: 09/21/20 Requesting physician: RYAN RODRÍGUEZ Reason for consult: dyspnea History of present illness: 40 y/o, morbidly obese female, who has lost over 100lbs admitted with one years worth of shortness of breath. unclear exactly what made patient come to ED compared to before. She was diagnosed with OHS/KELLEE about 8 years ago when at that time she weight over 400lbs. She has since lost over 100lbs but not intentionally. Per patient it has been secondary to poor dentition and tooth pain and she has not been able to eat well. Per patient she was seeing someone at [facility] who referred her for a sleep study. She cannot remember the name of the office nor the physician. She did not follow up after she had the sleep study. Work up here reveals an EF of 20% and CTA was negative for PE but showed pulmonary edema. She also has evidence of pulmonary HTN on her echo. She also smokes. Remainder is negative. Past History Past Medical History: COPD, hypertension, other (See HPI) Past Surgical History: cholecystectomy, hysterectomy Social history: , smoking, alcohol abuse Family history: diabetes, hypertension Medications and Allergies Allergies Allergy/AdvReac Type Severity Reaction Status Date / Time No Known Allergies Allergy Unverified 08/11/20 19:40 Active Meds: Active Medications Acetaminophen (Acetaminophen 325 Mg Tab) 650 mg PO Q4H PRN PRN Reason: Pain MILD(1-3)/Fever >100.5/MCLAUGHLIN Albuterol (Albuterol 2.5 Mg/3 Ml Nebu) 2.5 mg IH Q4HRT PRN PRN Reason: Shortness Of Breath Aspirin (Aspirin 81 Mg Tab Chew) 81 mg PO QDAY [facility] Last Admin: 09/20/20 13:33 Dose: 81 mg Documented by: Atorvastatin Calcium (Atorvastatin 40 Mg Tab) 40 mg PO QHS [facility] Last Admin: 09/20/20 23:38 Dose: 40 mg Documented by: Carvedilol (Carvedilol 25 Mg Tab) 25 mg PO Q12HR [facility] Last Admin: 09/20/20 23:38 Dose: 25 mg Documented by: Famotidine (Famotidine 10 Mg Tab) 10 mg PO BID [facility] Last Admin: 09/20/20 23:38 Dose: 10 mg Documented by: Furosemide (Furosemide 20 Mg/2 Ml Inj) 40 mg IV BID@0600,1800 [facility] Last Admin: 09/21/20 07:35 Dose: 40 mg Documented by: Heparin Sodium (Porcine) (Heparin 5,000 Unit/1 Ml Vial) 5,000 unit SUB-Q Q12HR [facility] Last Admin: 09/20/20 23:39 Dose: 5,000 unit Documented by: Hydralazine HCl (Hydralazine 20 Mg/1 Ml Inj) 10 mg IV Q4HR PRN PRN Reason: Hypertension Last Admin: 09/19/20 19:59 Dose: 10 mg Documented by: Hydromorphone HCl (Hydromorphone 1 Mg/1 Ml Inj) 0.5 mg IV Q4H PRN PRN Reason: Pain , Severe (7-10) Last Admin: 09/19/20 19:59 Dose: 0.5 mg Documented by: Lisinopril (Lisinopril 10 Mg Tab) 10 mg PO QDAY [facility] Last Admin: 09/20/20 13:33 Dose: 10 mg Documented by: Ondansetron HCl (Ondansetron 4 Mg/2 Ml Inj) 4 mg IV Q8H PRN PRN Reason: Nausea And Vomiting Potassium Chloride (Potassium Chloride Er 20 Meq Tab) 20 meq PO QDAY [facility] Last Admin: 09/20/20 13:16 Dose: 20 meq Documented by: Prednisone (Prednisone 20 Mg Tab) 40 mg PO QDAY [facility] Last Admin: 09/20/20 13:33 Dose: 40 mg Documented by: Sodium Chloride (Sodium Chloride 0.9% 10 Ml Flush Syringe) 10 ml IV BID [facility] Last Admin: 09/20/20 23:40 Dose: 10 ml Documented by: Sodium Chloride (Sodium Chloride 0.9% 10 Ml Flush Syringe) 10 ml IV PRN PRN PRN Reason: LINE FLUSH Physical Examination Vital signs: Vital Signs Temp Pulse Resp BP Pulse Ox 98.5 F 106 H 20 178/113 98 09/19/20 05:03 09/19/20 05:03 09/19/20 05:03 09/19/20 05:03 09/19/20 05:03 General appearance: no acute distress, alert Eyes: non-icteric ENT: other Neck: supple, other (large in circumference) Effort: normal Ascultation: Bilateral: clear, diminished breath sounds (secondary to body habitus) Results - Laboratory Findings CBC and BMP: 09/21/20 07:59 09/21/20 07:59 PT/INR, D-dimer D-Dimer 323.16 ng/mlDDU (0-234) H 09/19/20 07:40 Abnormal lab findings: Abnormal Labs 09/19/20 09/19/20 09/19/20 05:27 05:27 05:27 [place] % (Auto) 8.6 H Eos % (Auto) 7.3 H Lymph # (Auto) 1.1 L D-Dimer Potassium BUN Glucose 118 H NT-Pro-B Natriuret Pep 4949 H Albumin 09/19/20 09/20/20 09/21/20 07:40 06:55 07:59 [place] % (Auto) Eos % (Auto) Lymph # (Auto) D-Dimer 323.16 H Potassium 3.5 L BUN 19 H Glucose 106 H NT-Pro-B Natriuret Pep Albumin 3.5 L - Diagnostic Findings CT scan - chest: report reviewed, image reviewed Assessment and Plan 40 y/o morbidly obese female with dyspnea, pulmonary htn and systolic heart failure with tobacco abuse. 1. Would stop steroids 2. Patient needs repeat PSG given weight loss and lapse of time since last study 3. Pulm HTN is likely multifactorial from systolic heart failure (type 2) and untreated KELLEE and maybe COPD (this has not been confirmed so what not give her this diagnosis as of yet. She does smoke which puts her at risk for this but no structural evidence of this seen on CT) 4. Suggest continued weight loss, that is intentional 5. Needs to be net negative daily as this will help with her dyspnea 6. She is welcome to follow up in our sleep clinic if she chooses. She could not give me a reason as to why she did not follow up before 7. Ok with sending out with an albuterol rescue inhaler but no maintenance therapy as of yet. Patient would need full PFT if she follows up. 8. Dyspnea overall is multifactorial and is not going to improve until all things (smoking cessation, weight loss, proper therapy for KELLEE, negative volume state, weight loss, and treatment of pulmonary htn) are addressed. This will take time. Thank you for the consult. Call if questions.
[2020-09-21] MEDS: POTASSIUM CHLORIDE ER 20 MEQ TAB PO SCH (10:22)
[2020-09-21] MEDS: carvediloL 25 MG TAB PO SCH ×2 (10:24→21:17)
[2020-09-21] MEDS: predniSONE 20 MG TAB PO SCH (10:24)
[2020-09-21] MEDS: FAMOTIDINE 10 MG TAB PO SCH ×2 (10:24→21:16)
[2020-09-21] MEDS: LISINOPRIL 10 MG TAB PO SCH (10:24)
[2020-09-21] MEDS: HEPARIN 5,000 UNIT/1 ML VIAL SUB-Q SCH ×2 (10:24→21:16)
[2020-09-21] MEDS: ASPIRIN 81 MG TAB CHEW PO SCH (10:29)
--- NOTE | 2020-09-21 11:24 | Progress Note ---
Assessment and Plan Assessment and plan: 40 YO Female with Obesity Hypoventilation Syndrome, COPD, HTN, KELLEE concompliant with CPAP, Nicotine Dependence, ETOH Dependence presents to ED for evaluation. Pt reports" I am short of breath". Patient states that she has experienced shortness of breath over the past 1 year with worsening symptoms over the past 1 week. Patient knowledges decreased exercise tolerance, dyspnea on exertion, dyspnea at rest, as well as orthopnea, and paroxysmal nocturnal dyspnea. Patient transported to [facility] via private vehicle for further care and evaluation of the aforementioned symptoms. The patient was seen and evaluated in the emergency department. All lab and imaging studies reviewed. Patient underwent chest x-ray and found to have bilateral pleural effusion, as well as clinical symptoms consistent with new onset diastolic CHF decompensation. Patient initiated on CHF protocol and admitted to telemetry. Cardiology team consulted in ED. Patient denies fever, chills, chest pain, palpitation, productive cough, skin rash, recent ill contact, or known exposure to COVID-19. No prior admission for review. All medication listed at time of admission has been reconciled. CT chest: mild interstitial edema 09/20: Restart CPAP, counselling about tobacco use disorder 15 mins counselling, Continue current management, Pulmonary eval. Also discussed compliance and weight loss. She verbalized understanding. Anticipate discharge in 24-48 hrs. Replace K. 09/21: Patient seen and examined, doing well following diuresis, she verbalized understanding and the importance of quitting tobacco use. Pulm input noted, will stop steroids. Discussed and recommended sleep study again to the patient and she verbalized understanding. Continue weight loss. (1) Diastolic CHF Current Visit: Yes Status: Acute Qualifiers: Heart failure chronicity: acute Qualified Code(s): I50.31 - Acute diastolic (congestive) heart failure Plan to address problem: CHF protocol: Strict I's/O, monitor urine output every shift, daily weight, afterload reduction, blood pressure control, BNP, cardiology team consulted, echocardiogram ordered and is pending at time of admission. (2) Obesity hypoventilation syndrome Current Visit: Yes Status: Acute Plan to address problem: Balanced diet, increase physical activity discharge, outpatient pulmonary follow-up for sleep study. (3) Nicotine dependence Current Visit: Yes Status: Acute Qualifiers: Nicotine product type: cigarettes Substance use status: in withdrawal Qualified Code(s): F17.213 - Nicotine dependence, cigarettes, with withdrawal Plan to address problem: Smoking cessation counseling, supportive care, behavior change counseling, +15 minutes. (4) EtOH dependence Current Visit: Yes Status: Acute Plan to address problem: Thiamine, folic acid, multivitamin, CIWA protocol (5) Hypokalemia (6) Pulmonary HTN (7) VT prophylaxis Current Visit: Yes Status: Acute Plan to address problem: SCDs bilateral lower extremities while in bed, patient is ambulatory Hospitalist Physical - Constitutional Vitals: Temp Pulse Resp BP Pulse Ox 98.3 F 100 H 18 151/108 94 09/20/20 22:45 09/21/20 10:24 09/20/20 22:45 09/21/20 10:24 09/21/20 08:05 General appearance: Present: mild distress, obese HEART Score - HEART Score Troponin: Troponin T < 0.010 ng/mL (0.00-0.029) 09/20/20 06:55 Results - Labs CBC & Chem 7: 09/21/20 07:59 09/21/20 07:59 Labs: Laboratory Last Values WBC 8.0 K/mm3 (4.5-11.0) 09/21/20 07:59 RBC 4.19 M/mm3 (3.65-5.03) 09/21/20 07:59 Hgb 12.6 gm/dl (10.1-14.3) 09/21/20 07:59 Hct 38.0 % (30.3-42.9) 09/21/20 07:59 MCV 91 fl (79-97) 09/21/20 07:59 MCH 30 pg (28-32) 09/21/20 07:59 MCHC 33 % (30-34) 09/21/20 07:59 RDW 14.5 % (13.2-15.2) 09/21/20 07:59 Plt Count 315 K/mm3 (140-440) 09/21/20 07:59 Lymph % (Auto) 20.0 % (13.4-35.0) 09/19/20 05:27 [place] % (Auto) 8.6 % (0.0-7.3) H 09/19/20 05:27 Eos % (Auto) 7.3 % (0.0-4.3) H 09/19/20 05:27 Baso % (Auto) 0.9 % (0.0-1.8) 09/19/20 05:27 Lymph # (Auto) 1.1 K/mm3 (1.2-5.4) L 09/19/20 05:27 [place] # (Auto) 0.5 K/mm3 (0.0-0.8) 09/19/20 05:27 Eos # (Auto) 0.4 K/mm3 (0.0-0.4) 09/19/20 05:27 Baso # (Auto) 0.0 K/mm3 (0.0-0.1) 09/19/20 05:27 Seg Neutrophils % 63.2 % (40.0-70.0) 09/19/20 05:27 Seg Neutrophils # 3.5 K/mm3 (1.8-7.7) 09/19/20 05:27 D-Dimer 323.16 ng/mlDDU (0-234) H 09/19/20 07:40 Sodium 138 mmol/L (137-145) 09/21/20 07:59 Potassium 3.7 mmol/L (3.6-5.0) 09/21/20 07:59 Chloride 101.7 mmol/L (98-107) 09/21/20 07:59 Carbon Dioxide 27 mmol/L (22-30) 09/21/20 07:59 Anion Gap 13 mmol/L 09/21/20 07:59 BUN 19 mg/dL (7-17) H 09/21/20 07:59 Creatinine 0.8 mg/dL (0.6-1.2) 09/21/20 07:59 Estimated GFR > 60 ml/min 09/21/20 07:59 BUN/Creatinine Ratio 24 % 09/21/20 07:59 Glucose 106 mg/dL (65-100) H 09/21/20 07:59 Calcium 8.8 mg/dL (8.4-10.2) 09/21/20 07:59 Magnesium 1.90 mg/dL (1.7-2.3) 09/20/20 06:55 Total Bilirubin 0.40 mg/dL (0.1-1.2) 09/21/20 07:59 AST 12 units/L (5-40) 09/21/20 07:59 ALT 20 units/L (7-56) 09/21/20 07:59 Alkaline Phosphatase 82 units/L (35-129) 09/21/20 07:59 Troponin T < 0.010 ng/mL (0.00-0.029) 09/20/20 06:55 NT-Pro-B Natriuret Pep 4949 pg/mL (0-450) H 09/19/20 05:27 Total Protein 6.4 g/dL (6.3-8.2) 09/21/20 07:59 Albumin 3.5 g/dL (3.9-5) L 09/21/20 07:59 Albumin/Globulin Ratio 1.2 % 09/21/20 07:59 Triglycerides 75 mg/dL (2-149) 09/21/20 07:59 Cholesterol 140 mg/dL (50-199) 09/21/20 07:59 LDL Cholesterol Direct 81 mg/dL (50-130) 09/21/20 07:59 HDL Cholesterol 55 mg/dL (40-59) 09/21/20 07:59 Cholesterol/HDL Ratio 2.54 % 09/21/20 07:59 Mera/IV: Voiding Method Toilet Active Medications - Current Medications Current Medications: Generic Name Dose Route Start Last Admin Trade Name Freq PRN Reason Stop Dose Admin Acetaminophen 650 mg 09/19/20 13:07 Acetaminophen 325 Mg Tab PO Q4H PRN Pain MILD(1-3)/Fever >100.5/MCLAUGHLIN Albuterol 2.5 mg 09/19/20 13:07 Albuterol 2.5 Mg/3 Ml Nebu IH Q4HRT PRN Shortness Of Breath Aspirin 81 mg 09/20/20 13:00 09/21/20 10:29 Aspirin 81 Mg Tab Chew PO 81 mg QDAY YNES Administration Atorvastatin Calcium 40 mg 09/20/20 22:00 09/20/20 23:38 Atorvastatin 40 Mg Tab PO 40 mg QHS YNES Administration Carvedilol 25 mg 09/20/20 12:30 09/21/20 10:24 Carvedilol 25 Mg Tab PO 25 mg Q12HR YNES Administration Famotidine 10 mg 09/19/20 22:00 09/21/20 10:24 Famotidine 10 Mg Tab PO 10 mg BID YNES Administration Furosemide 40 mg 09/19/20 18:00 09/21/20 07:35 Furosemide 20 Mg/2 Ml Inj IV 40 mg BID@0600,1800 YNES Administration Heparin Sodium (Porcine) 5,000 unit 09/20/20 12:15 09/21/20 10:24 Heparin 5,000 Unit/1 Ml Vial SUB-Q 5,000 unit Q12HR YNES Administration Hydralazine HCl 10 mg 09/19/20 19:27 09/19/20 19:59 Hydralazine 20 Mg/1 Ml Inj IV 10 mg Q4HR PRN Administration Hypertension Hydromorphone HCl 0.5 mg 09/19/20 19:27 09/19/20 19:59 Hydromorphone 1 Mg/1 Ml Inj IV 0.5 mg Q4H PRN Administration Pain , Severe (7-10) Lisinopril 10 mg 09/20/20 12:30 09/21/20 10:24 Lisinopril 10 Mg Tab PO 10 mg QDAY YNES Administration Ondansetron HCl 4 mg 09/19/20 13:07 Ondansetron 4 Mg/2 Ml Inj IV Q8H PRN Nausea And Vomiting Potassium Chloride 20 meq 09/20/20 13:00 09/21/20 10:22 Potassium Chloride Er 20 Meq Tab PO 20 meq QDAY YNES Administration Sodium Chloride 10 ml 09/19/20 22:00 09/21/20 10:25 Sodium Chloride 0.9% 10 Ml Flush Syringe IV 10 ml BID YNES Administration Sodium Chloride 10 ml 09/19/20 13:07 Sodium Chloride 0.9% 10 Ml Flush Syringe IV PRN PRN LINE FLUSH
--- NOTE | 2020-09-21 14:08 | Electrocardiograph Report ---
[facility] Test Date: 2020-09-20 Test Time: 08:18:12 Pat Name: FELIX JORDAN Department: Room: A367 1 Gender: F Moderate Needs Teacher: SALMA : 1980 Requested By: REINALDO FOREMAN Order Number: [id number] Reading MD: Braeden Tim Measurements Intervals [place] Rate: 99 P: 68 [place]: 135 QRS: 1 QRSD: 101 T: 3 QT: 379 QTc: 488 Interpretive Statements Sinus rhythm Left ventricular hypertrophy Compared to ECG 09/19/2020 05:18:35 No significant change Electronically Signed On 09-21-2020 14:07:46 EDT by Braeden Tim
--- NOTE | 2020-09-21 17:13 | Progress Note ---
Assessment and Plan Plan for Lexiscan stress MPI in AM. NPO after midnight. Continue IV diuresis and other present cardiac mgmt for now. May ultimately consider switching to a cardioselective beta claudette. Pt will need to be fitted with LifeVest prior to discharge. Pt seen in conjunction with Dr. Valentina Callaway, who agrees with the assessment and plan of care. - Patient Problems (1) Acute on chronic HFrEF (heart failure with reduced ejection fraction) Current Visit: Yes Status: Acute (2) Cardiomyopathy Current Visit: Yes Status: Chronic (3) Hypertension Current Visit: Yes Status: Chronic Qualifiers: Hypertension type: essential hypertension Qualified Code(s): I10 - Essential (primary) hypertension (4) ETOH abuse Current Visit: Yes Status: Chronic (5) Tobacco use Current Visit: Yes Status: Chronic (6) COPD (chronic obstructive pulmonary disease) Current Visit: Yes Status: Suspected (7) Obstructive sleep apnea Current Visit: Yes Status: Suspected Subjective Date of service: 09/21/20 Principal diagnosis: HFrEF Interval history: Sitting up in bedside chair comfortably upon exam. States her breathing is s omewhat better. Reports good UOP. Tele reviewed - SR 90s, no events overnight. Objective Last Vital Signs Temp 97.8 F 09/21/20 12:14 Pulse 87 09/21/20 12:14 Resp 18 09/21/20 12:14 BP 126/84 09/21/20 12:14 Pulse Ox 96 09/21/20 12:14 - Physical Examination General: No Apparent Distress HEENT: Positive: EOMI, Normocephaly, Mucus Membranes Moist Neck: Positive: neck supple, trachea midline. Negative: JVD/HJR Cardiac: Positive: Reg Rate and Rhythm, S1/S2 Lungs: Positive: Decreased Breath Sounds Neuro: Positive: Grossly Intact Abdomen: Positive: Soft. Negative: Tender Skin: Negative: Rash Musculoskeletal: No Pain Extremities: Present: lower extr. pulses, +1 Edema (BLE) - Labs and Meds Cardiac Enzymes 09/21/20 Range/Units 07:59 AST 12 (5-40) units/L Lipids 09/21/20 Range/Units 07:59 Triglycerides 75 (2-149) mg/dL Cholesterol 140 (50-199) mg/dL HDL Cholesterol 55 (40-59) mg/dL Cholesterol/HDL Ratio 2.54 % CBC 09/21/20 Range/Units 07:59 WBC 8.0 (4.5-11.0) K/mm3 RBC 4.19 (3.65-5.03) M/mm3 Hgb 12.6 (10.1-14.3) gm/dl Hct 38.0 (30.3-42.9) % Plt Count 315 (140-440) K/mm3 Comprehensive Metabolic Panel 09/21/20 Range/Units 07:59 Sodium 138 (137-145) mmol/L Potassium 3.7 (3.6-5.0) mmol/L Chloride 101.7 (98-107) mmol/L Carbon Dioxide 27 (22-30) mmol/L BUN 19 H (7-17) mg/dL Creatinine 0.8 (0.6-1.2) mg/dL Glucose 106 H (65-100) mg/dL Calcium 8.8 (8.4-10.2) mg/dL AST 12 (5-40) units/L ALT 20 (7-56) units/L Alkaline Phosphatase 82 (35-129) units/L Total Protein 6.4 (6.3-8.2) g/dL Albumin 3.5 L (3.9-5) g/dL - Imaging and Cardiology EKG: report reviewed, image reviewed Pharmacologic stress test: pending Echo: report reviewed (09/19/2020 - EF 20-25%, LV mod dilated, RV mild-mod dilated, mild MR, mild TR) - Telemetry EKG Rhythm: Sinus Rhythm - EKG Sinus rhythms and dysrhythmias: sinus tachycardia
[2020-09-22] MEDS: FUROSEMIDE 20 MG/2 ML INJ IV SCH (05:17)
[2020-09-22] MEDS ORDERED: REGADENOSON 0.4 MG/5 ML INJ IV ONE ×2 (07:08→08:30)
[2020-09-22] MEDS: POTASSIUM CHLORIDE ER 20 MEQ TAB PO SCH (11:17)
[2020-09-22] MEDS: FAMOTIDINE 10 MG TAB PO SCH ×2 (11:17→21:51)
[2020-09-22] MEDS: carvediloL 25 MG TAB PO SCH ×2 (11:17→21:51)
[2020-09-22] MEDS: HEPARIN 5,000 UNIT/1 ML VIAL SUB-Q SCH ×2 (11:17→21:51)
[2020-09-22] MEDS: ASPIRIN 81 MG TAB CHEW PO SCH (11:17)
[2020-09-22] MEDS: LISINOPRIL 10 MG TAB PO SCH (11:18)
--- NOTE | 2020-09-22 11:42 | Progress Note ---
Assessment and Plan Assessment and plan: 40 YO Female with Obesity Hypoventilation Syndrome, COPD, HTN, KELLEE concompliant with CPAP, Nicotine Dependence, ETOH Dependence presents to ED for evaluation. Pt reports" I am short of breath". Patient states that she has experienced shortness of breath over the past 1 year with worsening symptoms over the past 1 week. Patient knowledges decreased exercise tolerance, dyspnea on exertion, dyspnea at rest, as well as orthopnea, and paroxysmal nocturnal dyspnea. Patient transported to [facility] via private vehicle for further care and evaluation of the aforementioned symptoms. The patient was seen and evaluated in the emergency department. All lab and imaging studies reviewed. Patient underwent chest x-ray and found to have bilateral pleural effusion, as well as clinical symptoms consistent with new onset diastolic CHF decompensation. Patient initiated on CHF protocol and admitted to telemetry. Cardiology team consulted in ED. Patient denies fever, chills, chest pain, palpitation, productive cough, skin rash, recent ill contact, or known exposure to COVID-19. No prior admission for review. All medication listed at time of admission has been reconciled. CT chest: mild interstitial edema 09/20: Restart CPAP, counselling about tobacco use disorder 15 mins counselling, Continue current management, Pulmonary eval. Also discussed compliance and weight loss. She verbalized understanding. Anticipate discharge in 24-48 hrs. Replace K. 09/21: Patient seen and examined, doing well following diuresis, she verbalized understanding and the importance of quitting tobacco use. Pulm input noted, will stop steroids. Discussed and recommended sleep study again to the patient and she verbalized understanding. Continue weight loss. 09/22/20 patient is seen and examined. Still complain of shortness of breath. No chest pain. Complained of depression. Patient is status post Lexiscan. Continue current management. We will put low-dose of Lexapro. Cardiology . Coun follow-up we will follow the Lexiscan result. Counseled patient regarding quitting smoking. Discharge plan when okay with cardiology. (1) Diastolic CHF Current Visit: Yes Status: Acute Qualifiers: Heart failure chronicity: acute Qualified Code(s): I50.31 - Acute diastolic (congestive) heart failure Plan to address problem: CHF protocol: Strict I's/O, monitor urine output every shift, daily weight, afterload reduction, blood pressure control, BNP, cardiology team consulted, echocardiogram ordered and is pending at time of admission. (2) Obesity hypoventilation syndrome Current Visit: Yes Status: Acute Plan to address problem: Balanced diet, increase physical activity discharge, outpatient pulmonary follow-up for sleep study. (3) Nicotine dependence Current Visit: Yes Status: Acute Qualifiers: Nicotine product type: cigarettes Substance use status: in withdrawal Qualified Code(s): F17.213 - Nicotine dependence, cigarettes, with withdrawal Plan to address problem: Smoking cessation counseling, supportive care, behavior change counseling, +15 minutes. (4) EtOH dependence Current Visit: Yes Status: Acute Plan to address problem: Thiamine, folic acid, multivitamin, CIWA protocol (5) Hypokalemia (6) Pulmonary HTN (7) VT prophylaxis Current Visit: Yes Status: Acute Plan to address problem: SCDs bilateral lower extremities while in bed, patient is ambulatory History Interval history: Patient is seen and examined. Lab and medication reviewed Patient is status post Lexiscan. Will follow the result Hospitalist Physical - Constitutional Vitals: Temp Pulse Resp BP Pulse Ox 98.4 F 92 H 18 116/62 94 09/22/20 04:48 09/22/20 11:18 09/22/20 04:48 09/22/20 11:18 09/22/20 04:48 General appearance: Present: mild distress, obese - Respiratory Respiratory effort: normal HEART Score - HEART Score Troponin: Troponin T < 0.010 ng/mL (0.00-0.029) 09/20/20 06:55 Results - Labs CBC & Chem 7: 09/21/20 07:59 09/21/20 07:59 Labs: Laboratory Last Values WBC 8.0 K/mm3 (4.5-11.0) 09/21/20 07:59 RBC 4.19 M/mm3 (3.65-5.03) 09/21/20 07:59 Hgb 12.6 gm/dl (10.1-14.3) 09/21/20 07:59 Hct 38.0 % (30.3-42.9) 09/21/20 07:59 MCV 91 fl (79-97) 09/21/20 07:59 MCH 30 pg (28-32) 09/21/20 07:59 MCHC 33 % (30-34) 09/21/20 07:59 RDW 14.5 % (13.2-15.2) 09/21/20 07:59 Plt Count 315 K/mm3 (140-440) 09/21/20 07:59 Lymph % (Auto) 20.0 % (13.4-35.0) 09/19/20 05:27 Collier % (Auto) 8.6 % (0.0-7.3) H 09/19/20 05:27 Eos % (Auto) 7.3 % (0.0-4.3) H 09/19/20 05:27 Baso % (Auto) 0.9 % (0.0-1.8) 09/19/20 05:27 Lymph # (Auto) 1.1 K/mm3 (1.2-5.4) L 09/19/20 05:27 Collier # (Auto) 0.5 K/mm3 (0.0-0.8) 09/19/20 05:27 Eos # (Auto) 0.4 K/mm3 (0.0-0.4) 09/19/20 05:27 Baso # (Auto) 0.0 K/mm3 (0.0-0.1) 09/19/20 05:27 Seg Neutrophils % 63.2 % (40.0-70.0) 09/19/20 05:27 Seg Neutrophils # 3.5 K/mm3 (1.8-7.7) 09/19/20 05:27 D-Dimer 323.16 ng/mlDDU (0-234) H 09/19/20 07:40 Sodium 138 mmol/L (137-145) 09/21/20 07:59 Potassium 3.7 mmol/L (3.6-5.0) 09/21/20 07:59 Chloride 101.7 mmol/L (98-107) 09/21/20 07:59 Carbon Dioxide 27 mmol/L (22-30) 09/21/20 07:59 Anion Gap 13 mmol/L 09/21/20 07:59 BUN 19 mg/dL (7-17) H 09/21/20 07:59 Creatinine 0.8 mg/dL (0.6-1.2) 09/21/20 07:59 Estimated GFR > 60 ml/min 09/21/20 07:59 BUN/Creatinine Ratio 24 % 09/21/20 07:59 Glucose 106 mg/dL (65-100) H 09/21/20 07:59 Calcium 8.8 mg/dL (8.4-10.2) 09/21/20 07:59 Magnesium 1.90 mg/dL (1.7-2.3) 09/20/20 06:55 Total Bilirubin 0.40 mg/dL (0.1-1.2) 09/21/20 07:59 AST 12 units/L (5-40) 09/21/20 07:59 ALT 20 units/L (7-56) 09/21/20 07:59 Alkaline Phosphatase 82 units/L (35-129) 09/21/20 07:59 Troponin T < 0.010 ng/mL (0.00-0.029) 09/20/20 06:55 NT-Pro-B Natriuret Pep 4949 pg/mL (0-450) H 09/19/20 05:27 Total Protein 6.4 g/dL (6.3-8.2) 09/21/20 07:59 Albumin 3.5 g/dL (3.9-5) L 09/21/20 07:59 Albumin/Globulin Ratio 1.2 % 09/21/20 07:59 Triglycerides 75 mg/dL (2-149) 09/21/20 07:59 Cholesterol 140 mg/dL (50-199) 09/21/20 07:59 LDL Cholesterol Direct 81 mg/dL (50-130) 09/21/20 07:59 HDL Cholesterol 55 mg/dL (40-59) 09/21/20 07:59 Cholesterol/HDL Ratio 2.54 % 09/21/20 07:59 Coronavirus (PCR) Negative (Negative) 09/21/20 Unknown Mera/IV: Voiding Method Toilet Active Medications - Current Medications Current Medications: Generic Name Dose Route Start Last Admin Trade Name Freq PRN Reason Stop Dose Admin Acetaminophen 650 mg 09/19/20 13:07 Acetaminophen 325 Mg Tab PO Q4H PRN Pain MILD(1-3)/Fever >100.5/MCLAUGHLIN Albuterol 2.5 mg 09/19/20 13:07 Albuterol 2.5 Mg/3 Ml Nebu IH Q4HRT PRN Shortness Of Breath Aspirin 81 mg 09/20/20 13:00 09/22/20 11:17 Aspirin 81 Mg Tab Chew PO 81 mg QDAY YNES Administration Atorvastatin Calcium 40 mg 09/20/20 22:00 09/21/20 21:16 Atorvastatin 40 Mg Tab PO 40 mg QHS YNES Administration Carvedilol 25 mg 09/20/20 12:30 09/22/20 11:17 Carvedilol 25 Mg Tab PO Not Given Q12HR YNES Famotidine 10 mg 09/19/20 22:00 09/22/20 11:17 Famotidine 10 Mg Tab PO 10 mg BID YNSE Administration Furosemide 40 mg 09/19/20 18:00 09/22/20 05:17 Furosemide 20 Mg/2 Ml Inj IV 40 mg BID@0600,1800 [facility] Administration Heparin Sodium (Porcine) 5,000 unit 09/20/20 12:15 09/22/20 11:17 Heparin 5,000 Unit/1 Ml Vial SUB-Q 5,000 unit Q12HR YNES Administration Hydralazine HCl 10 mg 09/19/20 19:27 09/19/20 19:59 Hydralazine 20 Mg/1 Ml Inj IV 10 mg Q4HR PRN Administration Hypertension Hydromorphone HCl 0.5 mg 09/19/20 19:27 09/19/20 19:59 Hydromorphone 1 Mg/1 Ml Inj IV 0.5 mg Q4H PRN Administration Pain , Severe (7-10) Lisinopril 10 mg 09/20/20 12:30 09/22/20 11:18 Lisinopril 10 Mg Tab PO Not Given QDAY [facility] Ondansetron HCl 4 mg 09/19/20 13:07 Ondansetron 4 Mg/2 Ml Inj IV Q8H PRN Nausea And Vomiting Potassium Chloride 20 meq 09/20/20 13:00 09/22/20 11:17 Potassium Chloride Er 20 Meq Tab PO 20 meq QDAY YNES Administration Sodium Chloride 10 ml 09/19/20 22:00 09/22/20 11:18 Sodium Chloride 0.9% 10 Ml Flush Syringe IV 10 ml BID YNES Administration Sodium Chloride 10 ml 09/19/20 13:07 Sodium Chloride 0.9% 10 Ml Flush Syringe IV PRN PRN LINE FLUSH Nutrition/Malnutrition Assess - Malnutrition Assessment Minimum of two criteria: No physical signs of malnutrition - Attestation Statement I have reviewed and agreed w/ Malnutrition eval & tx plan: No
--- NOTE | 2020-09-22 15:43 | Progress Note ---
Assessment and Plan Lexiscan stress MPI this AM revealed no evidence of significant ischemia. Awaiting LifeVest. Otherwise stable cardiac status. No objections to discharge from a Cardiology standpoint pending LifeVest. Recommend follow-up with Dr. Valentina Callaway in 1-2 weeks ([phone]). Pt seen in conjunction with Dr. Valentina Callaway, who agrees with the assessment and plan of care. - Patient Problems (1) Acute on chronic HFrEF (heart failure with reduced ejection fraction) Current Visit: Yes Status: Acute (2) Cardiomyopathy Current Visit: Yes Status: Chronic (3) Hypertension Current Visit: Yes Status: Chronic Qualifiers: Hypertension type: essential hypertension Qualified Code(s): I10 - Essential (primary) hypertension (4) ETOH abuse Current Visit: Yes Status: Chronic (5) Tobacco use Current Visit: Yes Status: Chronic (6) COPD (chronic obstructive pulmonary disease) Current Visit: Yes Status: Suspected (7) Obstructive sleep apnea Current Visit: Yes Status: Suspected (8) Depression Current Visit: Yes Status: Suspected Subjective Date of service: 09/22/20 Principal diagnosis: HFrEF Interval history: Breathing has significantly improved. Not orthopneic upon exam. Tele reviewed - SR 90s to low 100s, no events overnight. Objective Last Vital Signs Temp 99.2 F 09/22/20 11:15 Pulse 93 H 09/22/20 13:00 Resp 20 09/22/20 11:15 BP 116/62 09/22/20 11:18 Pulse Ox 96 09/22/20 11:15 - Physical Examination General: No Apparent Distress HEENT: Positive: EOMI, Normocephaly, Mucus Membranes Moist Neck: Positive: neck supple, trachea midline. Negative: JVD/HJR Cardiac: Positive: Reg Rate and Rhythm, S1/S2 Lungs: Positive: Decreased Breath Sounds (bases) Neuro: Positive: Grossly Intact Abdomen: Positive: Soft. Negative: Tender Skin: Negative: Rash Musculoskeletal: No Pain Extremities: Present: lower extr. pulses, edema (trace BLE) - Imaging and Cardiology EKG: report reviewed, image reviewed Pharmacologic stress test: report reviewed (09/22/2020 - no evidence of significant ischemia) Echo: report reviewed (09/19/2020 - EF 20-25%, LV mod dilated, RV mild-mod dilated, mild MR, mild TR) - Telemetry EKG Rhythm: Sinus Rhythm - EKG Sinus rhythms and dysrhythmias: sinus tachycardia
--- NOTE | 2020-09-22 16:26 | Consultation ---
History of Present Illness - Reason for Consult Consult date: 09/22/20 Reason for consult: Depression - Chief Complaint Chief complaint: Per Note: 40 YO Female with Obesity Hypoventilation Syndrome, COPD, HTN, KELLEE concompliant with CPAP, Nicotine Dependence, ETOH Dependence presents to ED for evaluation. Pt reports" I am short of breath". Patient states that she has experienced shortness of breath over the past 1 year with worsening symptoms over the past 1 week. Patient knowledges decreased exercise tolerance, dyspnea on exertion, dyspnea at rest, as well as orthopnea, and paroxysmal nocturnal dyspnea. Patient transported to [facility] via private vehicle for further care and evaluation of the aforementioned symptoms. The patient was seen and evaluated in the emergency department. All lab and imaging studies reviewed. Patient underwent chest x-ray and found to have bilateral pleural effusion, as well as clinical symptoms consistent with new onset diastolic CHF decompensation. Patient initiated on CHF protocol and admitted to telemetry. Cardiology team consulted in ED. Patient denies fever, chills, chest pain, palpitation, productive cough, skin rash, recent ill contact, or known exposure to COVID-19. No prior admission for review. All medication listed at time of admission has been reconciled. Nereyda Bray is a 40 year old female who was admitted via Ed for shortness of breath. During my interview with patient she reports a history of depression, and Bipolar. Patient states " I want to get back to my medications, I last took medications 10 years ago." Patient reports having increasing anger and mood swings. " I don't have friends because they can not take my attitude,"Patient reports being worried about medical issues. Patient endorses depression but denies suicidal ideation and denies hallucinations of any kind. PAST PSYCHIATRIC HISTORY: Diagnoses: Depression, Bipolar Suicide attempts or Self-harm behavior: denies Prior psychiatric hospitalizations: unknown Substance Abuse history: Alcohol and marijuana Previous psychiatric medications tried: " tried everything" Outpatient treatment: yes PAST MEDICAL HISTORY: Multiple Family Psychiatric History: None reported or documented SOCIAL HISTORY Marital Status: divorce Living Arrangements: Lives with partner Employment Status: employed Access to guns/weapons: n/a Education: some college History of Abuse: n/a Legal History: n/a REVIEW OF SYSTEMS Constitutional: Negative for weight loss ENT: Negative for stridor Respiratory: Negative for cough or hemoptysis All other systems reviewed and are negative MENTAL STATUS EXAMINATION General Appearance and Behavior: Age appropriate, good hygiene, wearing appropriate clothes, uncooperative polite with questioning. Cooperation: cooperative Psychomotor Behavior: Psychomotor agitation Mood: "depressed" Affect and affective range: congruent with stated mood Thought Process: goal directed Thought Content: with reality Speech: Normal volume, Regular rate and rhythm Intellectual Functioning: [place] Suicidal Ideation: denies Homicidal Ideation: Denied Impulse Control:intact Insight and Judgment: Normal Memory: Normal Attention:Normal Orientation: Alert and oriented Diagnoses: 1. Major depressive Disorder Current Visit: Yes Status: Acute F33.1 RECOMMENDATIONS: Start- Depakote 250mg po BID Continue- Lexapro 10mg po Daily Risks, benefits and alternatives of medications discussed with the patient, questions answered and consent obtained from patient. PSYCHOTHERAPY: Supportive psychotherapy provided MEDICAL: Per primary team DELIRIUM PRECAUTIONS: Please re-orient patient frequently, keep lights on during the day, and minimize benzodiazepines and opiates as these medications could worsen patient's confusion. STUDIO HAND: Per medical team DISPOSITION: No indication for acute inpatient psychiatric hospitalization at this time FOLLOW-UP:Will follow. Please contact with any questions and/or concerns. Medications and Allergies Allergies Allergy/AdvReac Type Severity Reaction Status Date / Time No Known Allergies Allergy Unverified 08/11/20 19:40 Home Medications Medication Instructions Recorded Confirmed Last Taken Type ALBUTEROL NEB's [Proventil 0.083% 2.5 mg IH Q4HRT PRN nebu 09/23/20 Unknown Rx NEBS] Acetaminophen [Acetaminophen TAB] 650 mg PO Q4H PRN tablet 09/23/20 Unknown Rx Aspirin [Aspirin BABY CHEW TAB] 81 mg PO QDAY #30 tab.chew 09/23/20 Unknown Rx AtorvaSTATin [Lipitor] 40 mg PO QHS #30 tablet 09/23/[address] [Depakote Dr] 250 mg PO BID #60 tablet 09/23/20 Unknown Rx Escitalopram [Lexapro] 10 mg PO QDAY #30 tablet 09/23/20 Unknown Rx Famotidine [Acid Controller] 20 mg PO BID #60 tablet 09/23/20 Unknown Rx Furosemide [Lasix TAB] 40 mg PO 0600,1800 #60 tablet 09/23/20 Unknown Rx carvediloL [Coreg] 25 mg PO Q12HR #60 tablet 09/23/20 Unknown Rx Active Meds: Active Medications Acetaminophen (Acetaminophen 325 Mg Tab) 650 mg PO Q4H PRN PRN Reason: Pain MILD(1-3)/Fever >100.5/MCLAUGHLIN Albuterol (Albuterol 2.5 Mg/3 Ml Nebu) 2.5 mg IH Q4HRT PRN PRN Reason: Shortness Of Breath Aspirin (Aspirin 81 Mg Tab Chew) 81 mg PO QDAY [facility] Last Admin: 09/22/20 11:17 Dose: 81 mg Documented by: Atorvastatin Calcium (Atorvastatin 40 Mg Tab) 40 mg PO QHS [facility] Last Admin: 09/21/20 21:16 Dose: 40 mg Documented by: Carvedilol (Carvedilol 25 Mg Tab) 25 mg PO Q12HR [facility] Last Admin: 09/22/20 11:17 Dose: Not Given Documented by: Escitalopram Oxalate (Escitalopram 10 Mg Tab) 10 mg PO QDAY [facility] Famotidine (Famotidine 10 Mg Tab) 10 mg PO BID [facility] Last Admin: 09/22/20 11:17 Dose: 10 mg Documented by: Furosemide (Furosemide 40 Mg Tab) 40 mg PO DAILY@0600 [facility] Heparin Sodium (Porcine) (Heparin 5,000 Unit/1 Ml Vial) 5,000 unit SUB-Q Q12HR [facility] Last Admin: 09/22/20 11:17 Dose: 5,000 unit Documented by: Hydralazine HCl (Hydralazine 20 Mg/1 Ml Inj) 10 mg IV Q4HR PRN PRN Reason: Hypertension Last Admin: 09/19/20 19:59 Dose: 10 mg Documented by: Hydromorphone HCl (Hydromorphone 1 Mg/1 Ml Inj) 0.5 mg IV Q4H PRN PRN Reason: Pain , Severe (7-10) Last Admin: 09/19/20 19:59 Dose: 0.5 mg Documented by: Lisinopril (Lisinopril 10 Mg Tab) 10 mg PO QDAY [facility] Last Admin: 09/22/20 11:18 Dose: Not Given Documented by: Ondansetron HCl (Ondansetron 4 Mg/2 Ml Inj) 4 mg IV Q8H PRN PRN Reason: Nausea And Vomiting Potassium Chloride (Potassium Chloride Er 20 Meq Tab) 20 meq PO QDAY [facility] Last Admin: 09/22/20 11:17 Dose: 20 meq Documented by: Sodium Chloride (Sodium Chloride 0.9% 10 Ml Flush Syringe) 10 ml IV BID YNES Last Admin: 09/22/20 11:18 Dose: 10 ml Documented by: Sodium Chloride (Sodium Chloride 0.9% 10 Ml Flush Syringe) 10 ml IV PRN PRN PRN Reason: LINE FLUSH Mental Status Exam - Vital signs Last Vital Signs Temp 99.2 F 09/22/20 11:15 Pulse 93 H 09/22/20 13:00 Resp 20 09/22/20 11:15 BP 116/62 09/22/20 11:18 Pulse Ox 96 09/22/20 11:15 Results Result Diagrams: 09/21/20 07:59 09/21/20 07:59 All other labs normal.
[2020-09-22] MEDS: FUROSEMIDE 40 MG TAB PO SCH (17:56)
[2020-09-22] MEDS: DIVALPROEX DR 250 MG TAB PO SCH (21:51)
--- NOTE | 2020-09-22 23:16 | Treadmill Report ---
DATE OF SERVICE: 09/22/2020 NUCLEAR PERFUSION SCAN REFERRING PHYSICIAN: Hospitalbhavik hernandez. PROTOCOL: The patient was assessed in postoperative state, given 10 mCi of technetium at rest. The patient had rest imaging. The patient underwent Lexiscan stress test per standard protocol. At peak stress, the patient given 26 mCi of technetium 99m. Shortly thereafter, the patient underwent stress imaging. Raw imaging reveals mild GI artifact, no significant motion artifact. SPECT imaging was examined carefully in the horizontal long axis, vertical long axis and short axis views. Although, inferior wall is partially obscured by GI artifact, grossly there is no evidence of a significant fixed or reversible defect suggestive of prior infarction or ischemia. LV chamber size is dilated during systole and diastole. There is severe global left ventricular hypokinesis with a calculated ejection fraction of 20%. No TID. CONCLUSIONS: 1. Technically difficult study due to GI artifact, but grossly probably normal without evidence of significant ischemia or prior infarction. 2. Dilated LV chamber size during systole and diastole with severe global left ventricular hypokinesis with a calculated ejection fraction of 20%. These findings are likely consistent with a severe dilated nonischemic cardiomyopathy. TID: [id number] RECEIPT: [id number]
[2020-09-23] MEDS: FUROSEMIDE 40 MG TAB PO SCH ×2 (05:44→17:15)
[2020-09-23] MEDS ORDERED: FUROSEMIDE 40 MG TAB PO SCH (06:00)
[2020-09-23] MEDS: LISINOPRIL 5 MG TAB PO SCH (07:08)
[2020-09-23] MEDS: carvediloL 12.5 MG TAB PO SCH (07:08)
[2020-09-23] MEDS: LISINOPRIL 10 MG TAB PO SCH (09:02)
[2020-09-23] MEDS: HEPARIN 5,000 UNIT/1 ML VIAL SUB-Q SCH ×2 (09:34→22:19)
[2020-09-23] MEDS: ASPIRIN 81 MG TAB CHEW PO SCH (09:34)
[2020-09-23] MEDS: POTASSIUM CHLORIDE ER 20 MEQ TAB PO SCH (09:34)
[2020-09-23] MEDS: carvediloL 25 MG TAB PO SCH ×2 (09:34→23:24)
[2020-09-23] MEDS: DIVALPROEX DR 250 MG TAB PO SCH ×2 (09:34→21:26)
[2020-09-23] MEDS: ESCITALOPRAM 10 MG TAB PO SCH (09:35)
[2020-09-23] MEDS: FAMOTIDINE 10 MG TAB PO SCH ×2 (09:35→21:25)
--- NOTE | 2020-09-23 11:11 | Discharge Summary ---
Providers - Providers Date of Admission: 09/19/20 13:07 Date of discharge: 09/23/20 Attending physician: IVAN SU MD 09/19/20 13:10 Consult to Cardiology [CONS] Routine Consulting Provider: MARLON MEAD Reason For Exam: chf 09/21/20 11:39 Consult to Physician [CONS] Routine Comment: Consulting Provider: JAXON PACE Physician Instructions: Reason For Exam: depression- pt request Primary care physician: ASSISTANT EDUCATION DIRECTOR Hospitalization Reason for admission: Acute on chronic heart failure with reduced ejection fraction, cardiomyopat Condition: Good Hospital course: 40 YO Female with Obesity Hypoventilation Syndrome, COPD, HTN, KELLEE concompliant with CPAP, Nicotine Dependence, ETOH Dependence presents to ED for evaluation. Pt reports" I am short of breath". Patient states that she has experienced shortness of breath over the past 1 year with worsening symptoms over the past 1 week. Patient knowledges decreased exercise tolerance, dyspnea on exertion, dyspnea at rest, as well as orthopnea, and paroxysmal nocturnal dyspnea. Patient transported to [facility] via private vehicle for further care and evaluation of the aforementioned symptoms. The patient was seen and evaluated in the emergency department. All lab and imaging studies reviewed. Patient underwent chest x-ray and found to have bilateral pleural effusion, as well as clinical symptoms consistent with new onset diastolic CHF decompensation. Patient initiated on CHF protocol and admitted to telemetry. Cardiology team consulted in ED. Patient denies fever, chills, chest pain, palpitation, productive cough, skin rash, recent ill contact, or known exposure to COVID-19. No prior admission for review. All medication listed at time of admission has been reconciled. CT chest: mild interstitial edema 09/20: Restart CPAP, counselling about tobacco use disorder 15 mins counselling, Continue current management, Pulmonary eval. Also discussed compliance and weight loss. She verbalized understanding. Anticipate discharge in 24-48 hrs. Replace K. 09/21: Patient seen and examined, doing well following diuresis, she verbalized understanding and the importance of quitting tobacco use. Pulm input noted, will stop steroids. Discussed and recommended sleep study again to the patient and she verbalized understanding. Continue weight loss. 09/22/20 patient is seen and examined. Still complain of shortness of breath. No chest pain. Complained of depression. Patient is status post Lexiscan. Continue current management. We will put low-dose of Lexapro. Cardiology . Coun follow-up we will follow the Lexiscan result. Counseled patient regarding quitting smoking. Discharge plan when okay with cardiology. 09/23/20 patient is seen and examined. Patient feels better. Patient denied any chest pain no shortness of breath. Patient is seen and examined by the cardiology. Lexiscan showed no cardiac ischemia. Cardiology recommended discharge the patient with lab test with outpatient follow-up with Dr. Onofre in his office in 1 to 2 weeks. Condition at the time of discharge is stable (1) Diastolic CHF Current Visit: Yes Status: Acute Qualifiers: Heart failure chronicity: acute Qualified Code(s): I50.31 - Acute diastolic (congestive) heart failure Plan to address problem: CHF protocol: Strict I's/O, monitor urine output every shift, daily weight, afterload reduction, blood pressure control, BNP, cardiology team consulted, echocardiogram ordered and is pending at time of admission. (2) Obesity hypoventilation syndrome Current Visit: Yes Status: Acute Plan to address problem: Balanced diet, increase physical activity discharge, outpatient pulmonary follow-up for sleep study. (3) Nicotine dependence Current Visit: Yes Status: Acute Qualifiers: Nicotine product type: cigarettes Substance use status: in withdrawal Qualified Code(s): F17.213 - Nicotine dependence, cigarettes, with withdrawal Plan to address problem: Smoking cessation counseling, supportive care, behavior change counseling, +15 minutes. (4) EtOH dependence Current Visit: Yes Status: Acute Plan to address problem: Thiamine, folic acid, multivitamin, CIWA protocol (5) Hypokalemia (6) Pulmonary HTN (7) VT prophylaxis Current Visit: Yes Status: Acute Plan to address problem: SCDs bilateral lower extremities while in bed, patient is ambulatory Disposition: TO HOME OR SELFCARE Final Discharge Diagnosis (Prints w/discharge instructions): Acute on chronic heart failure with reduced ejection fraction. Nicotine dependence. Alcohol dependence, pulmonary hypertension. Obesity hypoventilation syndrome Core Measure Documentation - Palliative Care Palliative Care/ Comfort Measures: Not Applicable - Core Measures Any of the following diagnoses?: heart failure - VTE Discharge Requirements Deep Vein Thrombosis/Pulmonary Embolism Present on Admission: No - Heart Failure Discharge Requirements YARELIS/ARB for LVSD if EF <40%: Yes Beta claudette at discharge: Yes Exam - Constitutional Vitals: Temp Pulse Resp BP Pulse Ox 98.3 F 85 18 106/76 91 09/23/20 05:40 09/23/20 05:40 09/23/20 08:09 09/23/20 05:40 09/23/20 05:40 General appearance: Present: no acute distress, well-nourished - EENT Eyes: Present: PERRL ENT: hearing intact, clear oral mucosa - Neck Neck: Present: supple, normal ROM - Respiratory Respiratory effort: normal Respiratory: bilateral: CTA - Cardiovascular Heart Sounds: Present: S1 & S2. Absent: rub, click - Extremities Extremities: pulses symmetrical, No edema Peripheral Pulses: within normal limits - Abdominal General gastrointestinal: Present: soft, non-tender, non-distended, normal bowel sounds Female genitourinary: Present: normal - Integumentary Integumentary: Present: clear, warm, dry - Musculoskeletal Musculoskeletal: gait normal, strength equal bilaterally - Psychiatric Psychiatric: appropriate mood/affect, intact judgment & insight - Neurologic Neurologic: CNII-XII intact, moves all extremities Plan Activity: advance as tolerated Diet: low fat, low salt Follow up with: PRIMARY CAREMD [Primary Care Provider] - 7 Days INGRID ONOFRE MD [Staff Physician] - 7 Days Prescriptions: AtorvaSTATin [Lipitor] 40 mg PO QHS #30 tablet Famotidine [Acid Controller] 20 mg PO BID #60 tablet Aspirin [Aspirin BABY CHEW TAB] 81 mg PO QDAY #30 tab.chew carvediloL [Coreg] 25 mg PO Q12HR #[address] [Depakote Dr] 250 mg PO BID #60 tablet Furosemide [Lasix TAB] 40 mg PO 0600,1800 #60 tablet Escitalopram [Lexapro] 10 mg PO QDAY #30 tablet
[2020-09-24 04:44] VITALS: BP 111/74
[2020-09-24] MEDS: FUROSEMIDE 40 MG TAB PO SCH (05:32)
--- NOTE | 2020-09-24 11:07 | Progress Note ---
Assessment and Plan Assessment and plan: 40 YO Female with Obesity Hypoventilation Syndrome, COPD, HTN, KELLEE concompliant with CPAP, Nicotine Dependence, ETOH Dependence presents to ED for evaluation. Pt reports" I am short of breath". Patient states that she has experienced shortness of breath over the past 1 year with worsening symptoms over the past 1 week. Patient knowledges decreased exercise tolerance, dyspnea on exertion, dyspnea at rest, as well as orthopnea, and paroxysmal nocturnal dyspnea. Patient transported to [facility] via private vehicle for further care and evaluation of the aforementioned symptoms. The patient was seen and evaluated in the emergency department. All lab and imaging studies reviewed. Patient underwent chest x-ray and found to have bilateral pleural effusion, as well as clinical symptoms consistent with new onset diastolic CHF decompensation. Patient initiated on CHF protocol and admitted to telemetry. Cardiology team consulted in ED. Patient denies fever, chills, chest pain, palpitation, productive cough, skin rash, recent ill contact, or known exposure to COVID-19. No prior admission for review. All medication listed at time of admission has been reconciled. CT chest: mild interstitial edema 09/20: Restart CPAP, counselling about tobacco use disorder 15 mins counselling, Continue current management, Pulmonary eval. Also discussed compliance and weight loss. She verbalized understanding. Anticipate discharge in 24-48 hrs. Replace K. 09/21: Patient seen and examined, doing well following diuresis, she verbalized understanding and the importance of quitting tobacco use. Pulm input noted, will stop steroids. Discussed and recommended sleep study again to the patient and she verbalized understanding. Continue weight loss. 09/22/20 patient is seen and examined. Still complain of shortness of breath. No chest pain. Complained of depression. Patient is status post Lexiscan. C ontinue current management. We will put low-dose of Lexapro. Cardiology . Coun follow-up we will follow the Lexiscan result. Counseled patient regarding quitting smoking. Discharge plan when okay with cardiology. 09/23/20 patient is seen and examined. Patient feels better. Patient denied an y chest pain no shortness of breath. Patient is seen and examined by the cardiology. Lexiscan showed no cardiac ischemia. Cardiology recommended discharge the patient with lab test with outpatient follow-up with Dr. Callaway in his office in 1 to 2 weeks. Condition at the time of discharge is stable 09/24: Patient awaiting Life[facility] for discharge. No respiratory distress at this time (1) Diastolic CHF Current Visit: Yes Status: Acute Qualifiers: Heart failure chronicity: acute Qualified Code(s): I50.31 - Acute diastolic (congestive) heart failure Plan to address problem: CHF protocol: Strict I's/O, monitor urine output every shift, daily weight, afterload reduction, blood pressure control, BNP, cardiology team consulted, echocardiogram ordered and is pending at time of admission. (2) Obesity hypoventilation syndrome Current Visit: Yes Status: Acute Plan to address problem: Balanced diet, increase physical activity discharge, outpatient pulmonary follow-up for sleep study. (3) Nicotine dependence Current Visit: Yes Status: Acute Qualifiers: Nicotine product type: cigarettes Substance use status: in withdrawal Qualified Code(s): F17.213 - Nicotine dependence, cigarettes, with withdrawal Plan to address problem: Smoking cessation counseling, supportive care, behavior change counseling, +15 minutes. (4) EtOH dependence Current Visit: Yes Status: Acute Plan to address problem: Thiamine, folic acid, multivitamin, CIWA protocol (5) Hypokalemia (6) Pulmonary HTN (7) VT prophylaxis Current Visit: Yes Status: Acute Plan to address problem: SCDs bilateral lower extremities while in bed, patient is ambulatory History Interval history: Patient seen and examined, reports improvement and awaiting [facility] Physical - Physical exam Narrative exam: VITAL SIGNS: Reviewed. GENERAL: The patient appears normally developed, obese vital signs as documented. HEAD: No signs of head trauma. EYES: Pupils are equal. Extraocular motions intact. EARS: Hearing grossly intact. MOUTH: Oropharynx is normal. NECK: No adenopathy, no JVD. CHEST: Chest with diminished breath sounds bilaterally. No wheezes, rales, or rhonchi. CARDIAC: Regular rate and rhythm. S1 and S2, without murmurs, gallops, or rubs. VASCULAR: No Edema. Peripheral pulses normal and equal in all extremities. ABDOMEN: Soft, non tender and non distended. No rebound or guarding, and no masses palpated. Bowel Sounds normal. MUSCULOSKELETAL: Good range of motion of all major joints. Extremities without clubbing, cyanosis or edema. NEUROLOGIC EXAM: Alert and oriented x 3 No focal sensory or strength deficits. Speech normal. Follows commands. PSYCHIATRIC: Mood normal. SKIN: detail exam as documented in skin assessment - Constitutional Vitals: Temp Pulse Resp BP Pulse Ox 98.1 F 90 18 111/74 98 09/24/20 04:42 09/24/20 04:42 09/24/20 04:42 09/24/20 04:42 09/24/20 09:00 General appearance: Present: no acute distress, well-nourished HEART Score - HEART Score Troponin: Troponin T < 0.010 ng/mL (0.00-0.029) 09/20/20 06:55 Results - Labs CBC & Chem 7: 09/21/20 07:59 09/21/20 07:59 Labs: Laboratory Last Values WBC 8.0 K/mm3 (4.5-11.0) 09/21/20 07:59 RBC 4.19 M/mm3 (3.65-5.03) 09/21/20 07:59 Hgb 12.6 gm/dl (10.1-14.3) 09/21/20 07:59 Hct 38.0 % (30.3-42.9) 09/21/20 07:59 MCV 91 fl (79-97) 09/21/20 07:59 MCH 30 pg (28-32) 09/21/20 07:59 MCHC 33 % (30-34) 09/21/20 07:59 RDW 14.5 % (13.2-15.2) 09/21/20 07:59 Plt Count 315 K/mm3 (140-440) 09/21/20 07:59 Lymph % (Auto) 20.0 % (13.4-35.0) 09/19/20 05:27 [place] % (Auto) 8.6 % (0.0-7.3) H 09/19/20 05:27 Eos % (Auto) 7.3 % (0.0-4.3) H 09/19/20 05:27 Baso % (Auto) 0.9 % (0.0-1.8) 09/19/20 05:27 Lymph # (Auto) 1.1 K/mm3 (1.2-5.4) L 09/19/20 05:27 [place] # (Auto) 0.5 K/mm3 (0.0-0.8) 09/19/20 05:27 Eos # (Auto) 0.4 K/mm3 (0.0-0.4) 09/19/20 05:27 Baso # (Auto) 0.0 K/mm3 (0.0-0.1) 09/19/20 05:27 Seg Neutrophils % 63.2 % (40.0-70.0) 09/19/20 05:27 Seg Neutrophils # 3.5 K/mm3 (1.8-7.7) 09/19/20 05:27 D-Dimer 323.16 ng/mlDDU (0-234) H 09/19/20 07:40 Sodium 138 mmol/L (137-145) 09/21/20 07:59 Potassium 3.7 mmol/L (3.6-5.0) 09/21/20 07:59 Chloride 101.7 mmol/L (98-107) 09/21/20 07:59 Carbon Dioxide 27 mmol/L (22-30) 09/21/20 07:59 Anion Gap 13 mmol/L 09/21/20 07:59 BUN 19 mg/dL (7-17) H 09/21/20 07:59 Creatinine 0.8 mg/dL (0.6-1.2) 09/21/20 07:59 Estimated GFR > 60 ml/min 09/21/20 07:59 BUN/Creatinine Ratio 24 % 09/21/20 07:59 Glucose 106 mg/dL (65-100) H 09/21/20 07:59 Calcium 8.8 mg/dL (8.4-10.2) 09/21/20 07:59 Magnesium 1.90 mg/dL (1.7-2.3) 09/20/20 06:55 Total Bilirubin 0.40 mg/dL (0.1-1.2) 09/21/20 07:59 AST 12 units/L (5-40) 09/21/20 07:59 ALT 20 units/L (7-56) 09/21/20 07:59 Alkaline Phosphatase 82 units/L (35-129) 09/21/20 07:59 Troponin T < 0.010 ng/mL (0.00-0.029) 09/20/20 06:55 NT-Pro-B Natriuret Pep 4949 pg/mL (0-450) H 09/19/20 05:27 Total Protein 6.4 g/dL (6.3-8.2) 09/21/20 07:59 Albumin 3.5 g/dL (3.9-5) L 09/21/20 07:59 Albumin/Globulin Ratio 1.2 % 09/21/20 07:59 Triglycerides 75 mg/dL (2-149) 09/21/20 07:59 Cholesterol 140 mg/dL (50-199) 09/21/20 07:59 LDL Cholesterol Direct 81 mg/dL (50-130) 09/21/20 07:59 HDL Cholesterol 55 mg/dL (40-59) 09/21/20 07:59 Cholesterol/HDL Ratio 2.54 % 09/21/20 07:59 Coronavirus (PCR) Negative (Negative) 09/21/20 Unknown Mera/IV: Voiding Method Toilet Active Medications - Current Medications Current Medications: Generic Name Dose Route Start Last Admin Trade Name Freq PRN Reason Stop Dose Admin Acetaminophen 650 mg 09/19/20 13:07 Acetaminophen 325 Mg Tab PO Q4H PRN Pain MILD(1-3)/Fever >100.5/[id number] Albuterol 2.5 mg 09/19/20 13:07 Albuterol 2.5 Mg/3 Ml Nebu IH Q4HRT PRN Shortness Of Breath Aspirin 81 mg 09/20/20 13:00 09/23/20 09:34 Aspirin 81 Mg Tab Chew PO 81 mg QDAY YNES Administration Atorvastatin Calcium 40 mg 09/20/20 22:00 09/23/20 21:25 Atorvastatin 40 Mg Tab PO 40 mg QHS YNES Administration Carvedilol 25 mg 09/20/20 12:30 09/23/20 23:24 Carvedilol 25 Mg Tab PO 25 mg Q12HR YNES Administration Divalproex Sodium 250 mg 09/22/20 22:00 09/23/20 21:[address] 250 Mg Tab PO 250 mg BID YNES Administration Escitalopram Oxalate 10 mg 09/23/20 10:00 09/23/20 09:35 Escitalopram 10 Mg Tab PO 10 mg QDAY YNES Administration Famotidine 10 mg 09/19/20 22:00 09/23/20 21:25 Famotidine 10 Mg Tab PO 10 mg BID YNES Administration Furosemide 40 mg 09/22/20 18:00 06/27/21 05:32 Furosemide 40 Mg Tab PO 40 mg 0600,1800 YNES Administration Heparin Sodium (Porcine) 5,000 unit 09/20/20 12:15 09/23/20 22:19 Heparin 5,000 Unit/1 Ml Vial SUB-Q Not Given Q12HR YNES Hydralazine HCl 10 mg 09/19/20 19:27 09/19/20 19:59 Hydralazine 20 Mg/1 Ml Inj IV 10 mg Q4HR PRN Administration Hypertension Hydromorphone HCl 0.5 mg 09/19/20 19:27 09/19/20 19:59 Hydromorphone 1 Mg/1 Ml Inj IV 0.5 mg Q4H PRN Administration Pain , Severe (7-10) Lisinopril 10 mg 09/20/20 12:30 09/23/20 09:02 Lisinopril 10 Mg Tab PO Not Given QDAY [facility] Ondansetron HCl 4 mg 09/19/20 13:07 Ondansetron 4 Mg/2 Ml Inj IV Q8H PRN Nausea And Vomiting Potassium Chloride 20 meq 09/20/20 13:00 09/23/20 09:34 Potassium Chloride Er 20 Meq Tab PO 20 meq QDAY YNES Administration Sodium Chloride 10 ml 09/19/20 22:00 09/23/20 21:26 Sodium Chloride 0.9% 10 Ml Flush Syringe IV 10 ml BID YNES Administration Sodium Chloride 10 ml 09/19/20 13:07 Sodium Chloride 0.9% 10 Ml Flush Syringe IV PRN PRN LINE FLUSH
[2020-09-24] MEDS: DIVALPROEX DR 250 MG TAB PO SCH (11:29)
[2020-09-24] MEDS: carvediloL 25 MG TAB PO SCH (11:29)
[2020-09-24] MEDS: ASPIRIN 81 MG TAB CHEW PO SCH (11:29)
[2020-09-24] MEDS: HEPARIN 5,000 UNIT/1 ML VIAL SUB-Q SCH (11:30)
[2020-09-24] MEDS: POTASSIUM CHLORIDE ER 20 MEQ TAB PO SCH (11:31)
[2020-09-24] MEDS: ESCITALOPRAM 10 MG TAB PO SCH (11:31)
[2020-09-24] MEDS: FAMOTIDINE 10 MG TAB PO SCH (11:31)
[2020-09-24] MEDS: LISINOPRIL 10 MG TAB PO SCH (11:32)
== END 2020-09-24 13:04 | disposition home or self-care (01) | DRG 291 ==
LOC: ED 04:54 → 4A 13:07 → 3A 15:08
PROVIDERS: ADMIT Internal Medicine; ATTEND Internal Medicine
DX: I11.0 Hypertensive heart disease with heart failure (principal); J96.01 Acute respiratory failure with hypoxia; E66.2 Morbid (severe) obesity with alveolar hypoventilation; Z68.43 Body mass index [BMI] 50.0-59.9, adult; I50.33 Acute on chronic diastolic (congestive) heart failure; J44.9 Chronic obstructive pulmonary disease, unspecified; E11.9 Type 2 diabetes mellitus without complications; I42.9 Cardiomyopathy, unspecified; E87.6 Hypokalemia; I27.20 Pulmonary hypertension, unspecified; Z20.822 Contact with and (suspected) exposure to COVID-19; F10.20 Alcohol dependence, uncomplicated; F17.200 Nicotine dependence, unspecified, uncomplicated; Z79.899 Other long term (current) drug therapy; Z90.710 Acquired absence of both cervix and uterus; Z90.49 Acquired absence of other specified parts of digestive tract; Z83.3 Family history of diabetes mellitus; Z82.49 Family history of ischemic heart disease and other diseases of the circulatory system
CPT/HCPCS: 36415; 71046; 71275; 74176; 78452; 80048; 80053; 80061; 83735; 83880; 84484; 85025; 85027; 85379; 87116; 87641; 93005; 93017; 93306; 93970; 94644; 96365; 99406; G0378; A9270-GY; A9502; J0360; J0696; J1170; J1644; J1940; J2785; J7512; Q9967; U0003